=== PATIENT | female | born 1940 | race Caucasian/White ===

== ENCOUNTER 2016-06-07 01:41 | Emergency (ER) | payer MEDICARE, SELFPAY ==
[2016-06-07] MEDS ORDERED: Nitrostat 0.4 MG (ED) SL ONE ×2 (01:54→02:02)
[2016-06-07] MEDS ORDERED: BABY ASPIRIN 81 MG CHEW PO ONE (01:54)
[2016-06-07] MEDS ORDERED: Sodium Chloride 0.9% 1000 ML 1,000 ML IV SCH (02:00)
--- NOTE | 2016-06-07 02:01 | ERPHSYRPT ---
- History of Present Illness Time Seen by Provider: 06/07/16 01:45 Historian: patient Exam Limitations: no limitations Physician History: ABOUT 2.75 HOURS AGO PT STARTED WITH CONSTANT NON-RADIATING DULL ANTERIOR CHEST PAIN WORSE WITH BREATHING. PT DENIES SHORTNESS OF AIR, NAUSEA, VOMITING, ABDOMINAL PAIN, FEVER. Aspirin Treatment Today: 81 mg x 4, provided by ED Allergies/Adverse Reactions: No Known Drug Allergies Allergy (Unverified 06/07/16 03:29) Home Medications: Famotidine 20 mg [Pepcid 20 MG] 1 tab BID 06/07/16 [History] Fenofibrate Nanocrystallized [Fenofibrate] 1 tab DAILY 06/07/16 [History] Losartan Potassium 50 mg [Cozaar 50 MG] 1 tab DAILY 06/07/16 [History] Multivitamin W-Minerals/Lutein [Centrum Silver Tablet] 1 tab DAILY 06/07/16 [ History] Hx Tetanus, Diphtheria Vaccination/Date Given: No Hx Influenza Vaccination/Date Given: Yes Hx Pneumococcal Vaccination/Date Given: Yes - Review of Systems Cardiac: Chest Pain All Other Systems: Reviewed and Negative - Past Medical History Pertinent Past Medical History: Yes Cardiac History: High Cholesterol, Hypertension GI Medical History: Colitis - Past Surgical History Past Surgical History: Yes Musculoskeletal: Joint Replacement - Social History Smoking Status: Never smoker Exposure to second hand smoke: No Drug Use: none Patient Lives Alone: No - Nursing Vital Signs Pulse Rate: 55 Respiratory Rate: 16 Pain Intensity: 4 - Physical Exam General Appearance: alert Eye Exam: PERRL/EOMI Ears, Nose, Throat Exam: TMs normal, pharynx normal, moist mucous membranes Neck Exam: normal inspection Respiratory Exam: wheezing (MINIMAL EXPIRATORY WHEEZING OVER POSTERIOR BASES.) Cardiovascular Exam: normal heart sounds Gastrointestinal/Abdomen Exam: soft, normal bowel sounds Back Exam: normal range of motion Extremity Exam: normal inspection, No pedal edema Neurologic Exam: alert, cooperative Skin Exam: warm, dry SpO2 Interpretation: normal SpO2: 97 Oxygen Delivery: Room Air - Course Nursing assessment & vital signs reviewed: Yes EKG Interpreted by Me: RATE (55), Sinus Tristen, NORMAL AXIS, Non-specific ST Changes - Radiology Exams Chest X-ray Interpretation: Interpreted by me, No Pneumonia Ordered Tests: Active Orders 24 hr Category Date Time Status Process Control Technician STAT Care 06/07/16 01:54 Active Cath for Specimen-Straight STAT Care 06/07/16 02:51 Active EKG-ER Only STAT Care 06/07/16 01:54 Active EKG-ER Only STAT Care 06/07/16 04:14 Active IV Insertion STAT Care 06/07/16 01:54 Active Oxygen-ED Only NASAL CANNULA 2 lpm Care 06/07/16 01:54 Active Pulse Oximetry (ED) STAT Care 06/07/16 01:54 Active CHEST 1 VIEW (PORTABLE) Stat Exams 06/07/16 01:55 Taken AMYLASE Stat Lab 06/07/16 01:45 Completed CBC W DIFF Stat Lab 06/07/16 01:45 Completed CMP Stat Lab 06/07/16 01:45 Completed LIPASE Stat Lab 06/07/16 01:45 Completed MAGNESIUM Stat Lab 06/07/16 01:45 Completed NT PRO BNP Stat Lab 06/07/16 01:45 Completed PROTIME WITH INR Stat Lab 06/07/16 01:45 Completed PTT Stat Lab 06/07/16 01:45 Completed TROPONIN Q3H Lab 06/07/16 01:45 Completed TROPONIN Q3H Lab 06/07/16 05:00 Ordered TROPONIN Q3H Lab 06/07/16 08:00 Ordered TROPONIN Q3H Lab 06/07/16 11:00 Ordered TROPONIN Q3H Lab 06/07/16 14:00 Ordered TROPONIN Stat Lab 06/07/16 04:32 Completed UA Stat Lab 06/07/16 03:00 Completed UA W/ MICROSCOPIC Stat Lab 06/07/16 02:15 Completed Medication Summary Generic Name Dose Route Start Last Admin Trade Name Freq PRN Reason Stop Dose Admin Sodium Chloride 1,000 mls @ 100 mls/hr 06/07/16 02:00 06/07/16 02:04 Sodium Chloride 0.9% 1000 Ml IV 07/07/16 01:59 100 mls/hr .Q10H DIDIER Administration Magnesium Oxide 400 mg 06/07/16 10:00 Mag-Ox 400 PO 07/07/16 09:59 BID DIDIER Discontinued Medications Generic Name Dose Route Start Last Admin Trade Name Freq PRN Reason Stop Dose Admin Aspirin 324 mg 06/07/16 01:54 06/07/16 02:05 Baby Aspirin 81 Mg Chew PO 06/07/16 01:55 324 mg STAT ONE Administration Aspirin Confirm 06/07/16 02:02 Baby Aspirin 81 Mg Chew Administered 06/07/16 02:03 Dose 324 mg .ROUTE .STK-MED ONE Nitroglycerin 0.4 mg 06/07/16 01:54 06/07/16 02:04 Nitrostat 0.4 Mg (Ed) SL 06/07/16 01:55 0.4 mg STAT ONE Administration Nitroglycerin Confirm 06/07/16 02:02 Nitrostat 0.4 Mg (Ed) Administered 06/07/16 02:03 Dose 0.4 mg SL .STK-MED ONE Lab/Rad Data: Laboratory Result Diagrams 06/07/16 01:45 06/07/16 01:45 Laboratory Results 06/07/16 06/07/16 06/07/16 Range/Units 04:32 03:00 02:15 WBC (4.0-10.5) K/mm3 RBC (4.1-5.4) M/mm3 Hgb (12.0-16.0) gm/dl Hct (35-47) % MCV (78-100) fl MCH (26-32) pg MCHC (32-36) g/dl RDW (11.5-14.0) % Plt Count (150-450) K/mm3 MPV (6-9.5) fl Gran % (36.0-66.0) % Lymphocytes % (24.0-44.0) % Monocytes % (0.0-12.0) % Eosinophils % (0.00-5.0) % Basophils % (0.0-0.4) % Basophils # (0-0.4) INR (0.8-3.0) PTT (25.3-37.0) SECONDS Sodium (136-145) mEq/L Potassium (3.5-5.1) mEq/L Chloride (98-107) mEq/L Carbon Dioxide (21-32) mEq/L Anion Gap (5-15) MEQ/L BUN (9-20) mg/dL Creatinine (0.55-1.30) mg/dl Estimated GFR ML/MIN Glucose (70-110) MG/DL Calcium (8.5-10.1) mg/dL Magnesium (1.8-2.4) mg/dL Total Bilirubin (0.2-1.0) mg/dL AST (15-37) U/L ALT (12-78) U/L Alkaline Phosphatase (46-116) U/L Troponin I < 0.017 (0.000-0.056) ng/ml NT-Pro-B Natriuret Pep (0-125) pg/ml Serum Total Protein (6.4-8.2) gm/dL Albumin (3.4-5.0) g/dL Amylase (25-115) U/L Lipase (73-393) U/L Ur Collection Type CATH CLEAN CATCH Urine Color YELLOW YELLOW (YELLOW) Urine Appearance CLEAR SLIGHTLY CLOUDY (CLEAR) Urine pH 5.5 7.0 (5-6) Ur Specific [place] 1.020 1.020 (1.005-1.025) Urine Protein NEGATIVE NEGATIVE (Negative) Urine Glucose (UA) NEGATIVE NEGATIVE (NEGATIVE) mg/dL Urine Ketones NEGATIVE NEGATIVE (NEGATIVE) Urine Nitrite NEGATIVE NEGATIVE (NEGATIVE) Urine Bilirubin NEGATIVE NEGATIVE (NEGATIVE) Urine Urobilinogen 0.2 0.2 (0-1) mg/dL Urine WBC (Auto) NEGATIVE LARGE (NEGATIVE) Urine RBC (Auto) TRACE NON-HEM NEGATIVE (0-5) Myles/ul Urine Microscopic WBC 15-25 (0-5) /HPF Ur Epithelial Cells MODERATE (FEW) /HPF Urine Bacteria MODERATE (NEGATIVE) /HPF Specimen Received 06/07/16:0300 06/07/16:0215 06/07/16 06/07/16 06/07/16 Range/Units 01:45 01:45 01:45 WBC (4.0-10.5) K/mm3 RBC (4.1-5.4) M/mm3 Hgb (12.0-16.0) gm/dl Hct (35-47) % MCV (78-100) fl MCH (26-32) pg MCHC (32-36) g/dl RDW (11.5-14.0) % Plt Count (150-450) K/mm3 MPV (6-9.5) fl Gran % (36.0-66.0) % Lymphocytes % (24.0-44.0) % Monocytes % (0.0-12.0) % Eosinophils % (0.00-5.0) % Basophils % (0.0-0.4) % Basophils # (0-0.4) INR 0.98 (0.8-3.0) PTT 30.2 (25.3-37.0) SECONDS Sodium 141 (136-145) mEq/L Potassium 4.0 (3.5-5.1) mEq/L Chloride 104 (98-107) mEq/L Carbon Dioxide 26.8 (21-32) mEq/L Anion Gap 14.5 (5-15) MEQ/L BUN 26 H (9-20) mg/dL Creatinine 1.30 (0.55-1.30) mg/dl Estimated GFR 43 ML/MIN Glucose 121 H (70-110) MG/DL Calcium 9.1 (8.5-10.1) mg/dL Magnesium 1.7 L (1.8-2.4) mg/dL Total Bilirubin 0.3 (0.2-1.0) mg/dL AST 21 (15-37) U/L ALT 22 (12-78) U/L Alkaline Phosphatase 58 (46-116) U/L Troponin I < 0.017 (0.000-0.056) ng/ml NT-Pro-B Natriuret Pep 519 H (0-125) pg/ml Serum Total Protein 7.0 (6.4-8.2) gm/dL Albumin 3.0 L (3.4-5.0) g/dL Amylase 58 (25-115) U/L Lipase 312 (73-393) U/L Ur Collection Type Urine Color (YELLOW) Urine Appearance (CLEAR) Urine pH (5-6) Ur Specific [place] (1.005-1.025) Urine Protein (Negative) Urine Glucose (UA) (NEGATIVE) mg/dL Urine Ketones (NEGATIVE) Urine Nitrite (NEGATIVE) Urine Bilirubin (NEGATIVE) Urine Urobilinogen (0-1) mg/dL Urine WBC (Auto) (NEGATIVE) Urine RBC (Auto) (0-5) Myles/ul Urine Microscopic WBC (0-5) /HPF Ur Epithelial Cells (FEW) /HPF Urine Bacteria (NEGATIVE) /HPF Specimen Received 06/07/16 Range/Units 01:45 WBC 9.1 (4.0-10.5) K/mm3 RBC 4.41 (4.1-5.4) M/mm3 Hgb 11.7 L (12.0-16.0) gm/dl Hct 37.2 (35-47) % MCV 84.4 (78-100) fl MCH 26.5 (26-32) pg MCHC 31.5 L (32-36) g/dl RDW 15.8 H (11.5-14.0) % Plt Count 382 (150-450) K/mm3 MPV 9.2 (6-9.5) fl Gran % 53.6 (36.0-66.0) % Lymphocytes % 26.0 (24.0-44.0) % Monocytes % 13.8 H (0.0-12.0) % Eosinophils % 5.3 H (0.00-5.0) % Basophils % 1.3 (0.0-0.4) % Basophils # 0.12 (0-0.4) INR (0.8-3.0) PTT (25.3-37.0) SECONDS Sodium (136-145) mEq/L Potassium (3.5-5.1) mEq/L Chloride (98-107) mEq/L Carbon Dioxide (21-32) mEq/L Anion Gap (5-15) MEQ/L BUN (9-20) mg/dL Creatinine (0.55-1.30) mg/dl Estimated GFR ML/MIN Glucose (70-110) MG/DL Calcium (8.5-10.1) mg/dL Magnesium (1.8-2.4) mg/dL Total Bilirubin (0.2-1.0) mg/dL AST (15-37) U/L ALT (12-78) U/L Alkaline Phosphatase (46-116) U/L Troponin I (0.000-0.056) ng/ml NT-Pro-B Natriuret Pep (0-125) pg/ml Serum Total Protein (6.4-8.2) gm/dL Albumin (3.4-5.0) g/dL Amylase (25-115) U/L Lipase (73-393) U/L Ur Collection Type Urine Color (YELLOW) Urine Appearance (CLEAR) Urine pH (5-6) Ur Specific [place] (1.005-1.025) Urine Protein (Negative) Urine Glucose (UA) (NEGATIVE) mg/dL Urine Ketones (NEGATIVE) Urine Nitrite (NEGATIVE) Urine Bilirubin (NEGATIVE) Urine Urobilinogen (0-1) mg/dL Urine WBC (Auto) (NEGATIVE) Urine RBC (Auto) (0-5) Myles/ul Urine Microscopic WBC (0-5) /HPF Ur Epithelial Cells (FEW) /HPF Urine Bacteria (NEGATIVE) /HPF Specimen Received - Departure Time of Disposition: 05:11 Departure Disposition: Home Clinical Impression: CHEST PAIN Condition: Fair Critical Care Time: No Instructions: Chest Pain Additional Instructions: FOLLOW UP WITH PRIVATE DOCTOR TOMORROW.
[2016-06-07] MEDS ORDERED: BABY ASPIRIN 81 MG CHEW ONE (02:02)
[2016-06-07] MEDS ORDERED: Sodium Chloride 0.9% 1000 ML 1,000 ML ONE (02:03)
[2016-06-07 02:14] LABS: BASOPHIL % 1.3 % (0.0-0.4); Eosinophil % 5.3 % (0.00-5.0); Granulocytes % 53.6 % (36.0-66.0); Mean Cell Volume 84.4 fl (78-100); Mean Corpuscular Hemoglobin 26.5 pg (26-32); Mean Platelet Volume 9.2 fl (6-9.5); Monocytes % 13.8 % (0.0-12.0); Platelet Count 382 K/mm3 (150-450); Red Blood Count 4.41 M/mm3 (4.1-5.4); Red Cell Distribution Width 15.8 % (11.5-14.0); White Blood Count 9.1 K/mm3 (4.0-10.5)
[2016-06-07 02:24] LABS: INR 0.98 (0.8-3.0)
[2016-06-07 02:27] LABS: PTT 30.2 SECONDS (25.3-37.0)
[2016-06-07 02:35] LABS: COMPLETE URINE MICROSCOPIC? YES; Collection Type CLEAN CATCH
[2016-06-07 02:36] LABS: Bacteria MODERATE /HPF (NEGATIVE); Epithelial Cells MODERATE /HPF (FEW); WBC 15-25 /HPF (0-5)
[2016-06-07 02:40] LABS: ANION GAP 14.5 MEQ/L (5-15); BILIRUBIN,TOTAL 0.3 mg/dL (0.2-1.0); Carbon Dioxide 26.8 mEq/L (21-32); MAGNESIUM 1.7 mg/dL (1.8-2.4)
[2016-06-07 03:34] LABS: Collection Type CATH
[2016-06-07 03:35] LABS: Ph 5.5 (5-6)
[2016-06-07 03:36] LABS: COMPLETE URINE MICROSCOPIC? YES
[2016-06-07 04:44] VITALS: BP 141/61
[2016-06-07 05:12] VITALS: PULSE 55; O2SAT 97
[2016-06-07] MEDS ORDERED: MAG-OX 400 ONE (05:14)
[2016-06-07] MEDS ORDERED: MAG-OX 400 PO SCH (10:00)
--- NOTE | 2016-06-07 16:37 | XRAY ---
Exam: AP portable chest film from 06/07/2016. Comparison: None. Indication: Chest pain. Findings: The transverse heart size appears at the upper limits of normal. There is some magnification on this AP portable technique. The level of inspiration is a bit less than average. Mild tortuosity of the descending thoracic aorta is seen. No focal lung infiltrates or consolidations are seen. No significant vascular congestion, pneumothorax, or pleural fluid is seen. No acute osseous process is seen. Impression: 1. The inspiratory effort is less than average. 2. No acute cardiopulmonary process is seen.
== END 2016-06-07 05:30 | disposition home or self-care (01) ==
LOC: ED 01:41
DX: R07.89 Other chest pain (principal); E78.00 Pure hypercholesterolemia, unspecified; I10 Essential (primary) hypertension; Z79.899 Other long term (current) drug therapy
CPT/HCPCS: 36000; 36415; 71010; 80053; 81000; 81002; 82150; 83690; 83735; 83880; 84484; 85025; 85610; 85730; 93005; 93041; 96360; 96361; 99284; 99285; P9612; A9270-GY

== ENCOUNTER 2022-02-27 18:44 | Emergency (ER) | payer MEDICARE ==
[2022-02-27 18:59] VITALS: BP 222/100; PULSE 78; O2SAT 98
[2022-02-27] MEDS ORDERED: XYLOCAINE 1% HCL 20 ML MDV ONE (19:19)
[2022-02-27] MEDS ORDERED: Adacel Vial IM ONE ×2 (19:42→19:50)
--- NOTE | 2022-02-27 19:48 | ERPHSYRPT ---
- History of Present Illness Time Seen by Provider: 02/27/22 18:57 Source: patient Exam Limitations: no limitations Patient Subjective Stated Complaint: PT HERE FOR LACERTION TO RIGHT 5TH DIGIT AFTER SLAMMING IT HOUSE DOOR Triage Nursing Assessment: PT HAS LACERATION TO 5TH DIGIT, NO BLEEDING AT PRESENT TIME, PT DENIES ANY OTHER INJURIES Physician History: 81 years old right-handed dominant female presented in the ER after she accidentally got her right fifth digit middle phalanx while closing the door prior to arrival. There was bleeding initially but stopped with applying pressure. Complaining of mild to moderate sharp pain. Able to move finger proximal and distal interphalangeal joint. Unsure about tetanus status. No injury anywhere else. Timing/Duration: today, sudden Quality: painful Severity: mild, moderate Location: hands Allergies/Adverse Reactions: morphine Allergy (Verified 02/27/22 18:52) Home Medications: Famotidine 20 mg [Pepcid 20 MG] 1 tab BID 06/07/16 [History] Fenofibrate Nanocrystallized [Fenofibrate] 1 tab DAILY 06/07/16 [History] Losartan Potassium 50 mg [Cozaar 50 MG] 1 tab DAILY 06/07/16 [History] Multivitamin W-Minerals/Lutein [Centrum Silver Tablet] 1 tab DAILY 06/07/16 [History] Furosemide 40 mg [Lasix 40 MG] 40 mg PO DAILY 02/27/22 [History] Hx Tetanus, Diphtheria Vaccination/Date Given: No Hx Influenza Vaccination/Date Given: Yes Hx Pneumococcal Vaccination/Date Given: Yes Immunizations Up to Date: Yes Travel Risk - International Travel Have you traveled outside of the country in past 3 weeks: No - Coronavirus Screening Are you exhibiting any of the following symptoms?: No Close contact with a COVID-19 positive Pt in past 14-21 Days: No - Vaccine Status Have you recieved a Covid-19 vaccination: Yes 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 - Review of Systems Constitutional: No Symptoms Ears, Nose, & Throat: No Symptoms Respiratory: No Symptoms Cardiac: No Symptoms Genitourinary Symptoms: No Symptoms Musculoskeletal: Injury Skin: Skin Lesions Neurological: No Symptoms Hematologic/Lymphatic: No Symptoms Immunological/Allergic: No Symptoms - Past Medical History Pertinent Past Medical History: Yes Neurological History: No Pertinent History Cardiac History: Hypertension Respiratory History: Other Endocrine Medical History: Adrenal Insufficiency Musculoskeletal History: Osteoarthritis GI Medical History: Colitis Other Medical History: R TKA 2006, SOB, losartin - Past Surgical History Past Surgical History: Yes Musculoskeletal: Joint Replacement - Social History Smoking Status: Former smoker Exposure to second hand smoke: No Drug Use: none Patient Lives Alone: No - Nursing Vital Signs Nursing Vital Signs: Initial Vital Signs Temperature 98.0 F 02/27/22 18:57 Pulse Rate 78 02/27/22 18:57 Respiratory Rate 18 02/27/22 18:57 Blood Pressure 222/100 02/27/22 18:57 O2 Sat by Pulse Oximetry 98 02/27/22 18:57 Pain Scale Pain Intensity 4 - Physical Exam General Appearance: no apparent distress, alert Eye Exam: PERRL/EOMI Ears, Nose, Throat Exam: normal ENT inspection Neck Exam: normal inspection, full range of motion Respiratory Exam: normal breath sounds, lungs clear Cardiovascular Exam: regular rate/rhythm, normal heart sounds Extremity Exam: lacerations (2 cm laceration on palmar aspect of her right fifth digit distal middle phalanx with intact range of motion at proximal and distal interphalangeal joint. Cap refill 3 seconds.), swelling, tenderness Neurologic Exam: alert, oriented x 3, cooperative Skin Exam: normal color SpO2 Interpretation: normal SpO2: 98 O2 Delivery: Room Air Procedures - Laceration/Wound Repair Right Finger Time of Procedure: 19:45 Wound Location: Right Wound Length (cm): 2 Wound's Depth, Shape: into muscle, irregular Wound Explored: clean Irrigated: Yes Hibiclens Prep: Yes Anesthesia: 1% Lidocaine Volume Anesthetic (ccs): 3 Wound Repaired With: sutures Suture Size/Type: 4-0 Number of Sutures: 6 Sterile Dressing Applied?: Yes Sling Applied?: No Progress: 02/27/22 19:45 Patient tolerated procedure very well Ordered Tests: Active Orders 24 hr Category Date Time Status Sutures STAT Care 02/27/22 19:27 Active FINGER(S) Stat Exams 02/27/22 19:02 Taken Medication Summary Discontinued Medications Generic Name Dose Route Start Last Admin Trade Name Freq PRN Reason Stop Dose Admin Lidocaine HCl Confirm 02/27/22 19:19 Lidocaine Hcl 1% 20 Ml Mdv 20 Ml Ml Administered 02/27/22 19:20 Dose 1 ml .ROUTE .[email or web address] ONE - Progress Progress: improved Progress Note: 02/27/22 19:45 81 years old is evaluated in the ER with right hand fifth digit laceration with accidentally got slammed while closing the door. Complaining of mild to moderate sharp pain with movements but intact range of motion at proximal and distal interphalangeal joint. No injury anywhere else. No active bleeding or spurting. Distal neurovascular intact. X-rays negative for obvious acute fracture dislocation reviewed by me, official report is pending. Laceration is repaired and recommended outpatient orthopedics follow-up. Discussed symptoms of infection needing return to ER which he seems understanding Counseled pt/family regarding: diagnosis, need for follow-up, rad results - Departure Departure Disposition: Home Clinical Impression: Finger laceration Condition: Stable Critical Care Time: No Referrals: ROMAN PARRA MD [Primary Care Provider] - Follow Up with PCP/3 days ORTHO - SANKET GODINEZ NP [NON-STAFF PHY W/O PRIVILEGES] - Follow up/PCP as directed (In 2 days for reevaluation) Instructions: Laceration Repair With Stitches (DC) Additional Instructions: Take Tylenol as needed. Intermittent ice application. Keep it elevated. Avoid exertional work with right hand. Follow-up with primary care and Ortho for reevaluation. Suture removal in 10 to 14 days. Return to ER for increasing pain swelling, bluish discoloration of the tip etc.
--- NOTE | 2022-02-27 20:38 | XRAY ---
Indication: Pain and laceration following injury. Comparison: None 3 view right 5th finger demonstrates distal soft tissue swelling. Elsewhere osteopenia, mild/moderate degenerative changes of visualized IP/MCP joints, and advanced 1st metacarpal multangular scaphoid degenerative changes. No other bony, articular, or soft tissue abnormalities.
== END 2022-02-27 20:10 | disposition home or self-care (01) ==
LOC: ED 18:44
DX: S61.216A Laceration without foreign body of right little finger without damage to nail, initial encounter (principal); W23.0XXA Caught, crushed, jammed, or pinched between moving objects, initial encounter; I10 Essential (primary) hypertension; Z79.899 Other long term (current) drug therapy
CPT/HCPCS: 12001; 73140; 90471; 90715; 99283

== ENCOUNTER 2022-07-01 10:56 | Observation (INO) | payer MEDICARE ==
--- NOTE | 2022-07-01 12:08 | XRAY ---
Indication: Cough. Comparison: November 25, 2021 Portable chest remains inflated and clear. Heart not enlarged for AP portable technique. Bony thorax intact again with osteopenia and mild degenerative changes. Impression: Continue nonacute chest with chronic bony findings.
[2022-07-01 12:14] LABS: ADD URINE CULTURE? NO (NO); Appearance Clear (Clear); Bacteria Few /HPF (None Seen); Bilirubin Negative (Negative); Blood Negative (Negative); Epithelial Cells Few /HPF (None Seen); Glucose, Urine Negative (Negative); Ketones Negative (Negative); Leukocyte Esterase Moderate (Negative); Nitrite Negative (Negative); Protein,Urine Dip Negative (Negative); RBC 0-2 /HPF (0-5); Urobilinogen 0.2 mg/dL (0.2)
[2022-07-01 12:15] LABS: Absolute Neutrophil Ct (ANC) 3.45 x10^3/uL (1.4-6.9); BASOPHIL % 1.8 % (0.0-0.4); Basophil (Absolute #) 0.11 x10^3/uL (0-0.4); Eosinophil (Absolute #) 0.36 x10^3/uL (0-0.5); Hematocrit 42.5 % (35-47); Hemoglobin 13.4 g/dL (12.0-16.0); IMMATURE GRAN # 0.02 x10^3u/L (0.00-0.03); IMMATURE GRAN % 0.3 % (0.00-0.4); Lymphocyte (Absolute #) 1.24 x10^3/uL (1.0-4.6); Lymphocytes % 20.5 % (24.0-44.0); Mean Cell Volume 84.2 fL (78-100); Mean Corpuscular Hemoglobin 26.5 pg (26-32); Mean Corpuscular Hgb Concent. 31.5 g/dL (32-36); Monocyte (Absolute #) 0.86 x10^3/uL (0.0-1.3); Monocytes % 14.2 % (0.0-12.0); Neutrophil % 57.2 % (36.0-66.0); Platelet Count 363 x10^3/uL (150-450); Red Blood Count 5.05 x10^6/uL (4.1-5.4); Red Cell Distribution Width 14.5 % (11.5-14.0)
[2022-07-01 12:31] LABS: ANION GAP 14.2 MEQ/L (5-15); BILIRUBIN,TOTAL 0.5 mg/dL (0.2-1.3); Calcium 9.4 mg/dL (8.4-10.2); Creatinine 1 1.37 mg/dL (0.52-1.04); EST GLOMERULAR FILTRATION RATE 39.4 ML/MIN; Potassium 4.3 mmol/L (3.5-5.1); Total Protein 7.9 g/dL (6.3-8.2)
[2022-07-01] MEDS ORDERED: CARDIZEM DRIP 100 MG/100 ML D5W 100 ML IV PRN (14:02)
--- NOTE | 2022-07-01 14:30 | ERPHSYRPT ---
- History of Present Illness Time Seen by Provider: 07/01/22 11:20 Source: patient Exam Limitations: no limitations Patient Subjective Stated Complaint: Pt states "I took my morning meds and I then filled my pill bottles and An out after I took my morning meds, I thought t o myself that I needed to take my meds and I took them again. I took valsartan 160 X2 and lasix 40 X2, fenofibrate 140 X2." Triage Nursing Assessment: Pt presented alert and oriented X 3, skin pwd. Pt ambulates with an upright steady gait, able to speak in clear full sentences. Pt in no apparet respiratory distress. pt has raspy voice, pt stated she has a cold. Physician History: 81 years old female with history of hypertension, hyperlipidemia congestive heart failure presented in the ER after she accidentally took extra dose of her valsartan 80 mg, Lasix 40 mg and statin/fenofibrate around 830 to 9 AM today. Patient later on realized that she has taken extra pills. She denies any chest pain palpitations or shortness of breath but does have some chest congestion for the last few days. Minimal cough at times. No lower extremity swelling. Denies any headache, dizziness or lightheadedness. Patient is in A-fib with heart rate bouncing between 100-130 with no known history of A-fib in the past. Timing/Duration: today, gradual onset Associated Symptoms: cough, No chest pain Allergies/Adverse Reactions: morphine Allergy (Intermediate, Verified 07/01/22 18:10) Vomiting Home Medications: Fenofibrate Nanocrystallized [Fenofibrate] 145 mg PO DAILY 06/07/16 [History] Furosemide 40 mg [Lasix 40 MG] 40 mg PO 0800,1400 02/27/22 [History] Atorvastatin Calcium 10 mg PO HS 07/01/22 [History] Omeprazole 20 mg PO HS 07/01/22 [History] Ropinirole HCl 3 mg PO HS 07/01/22 [History] Valsartan 160 mg PO BID 07/01/22 [History] Vibegron [Gemtesa] 75 mg PO DAILY 07/01/22 [History] Hx Tetanus, Diphtheria Vaccination/Date Given: No Hx Influenza Vaccination/Date Given: Yes Hx Pneumococcal Vaccination/Date Given: Yes Travel Risk - International Travel Have you traveled outside of the country in past 3 weeks: No - Coronavirus Screening Are you exhibiting any of the following symptoms?: No Close contact with a COVID-19 positive Pt in past 14-21 Days: No - Vaccine Status Have you recieved a Covid-19 vaccination: Yes Yeast Washer: Unknown - Vaccination Dates Date of 2cond Vaccination (if applicable): 2020 Dates if Unknown: ? - Review of Systems Constitutional: No Symptoms Eyes: No Symptoms Ears, Nose, & Throat: No Symptoms Respiratory: Cough Cardiac: No Symptoms Abdominal/Gastrointestinal: No Symptoms Genitourinary Symptoms: No Symptoms Musculoskeletal: No Symptoms Skin: No Symptoms Neurological: No Symptoms Psychological: No Symptoms Hematologic/Lymphatic: No Symptoms Immunological/Allergic: No Symptoms - Past Medical History Pertinent Past Medical History: Yes Neurological History: No Pertinent History Cardiac History: Hypertension Respiratory History: Other Endocrine Medical History: Adrenal Insufficiency Musculoskeletal History: Osteoarthritis GI Medical History: Colitis Other Medical History: R TKA 2006, SOB, losartin - Past Surgical History Past Surgical History: Yes Musculoskeletal: Joint Replacement - Social History Smoking Status: Former smoker Exposure to second hand smoke: No Drug Use: none Patient Lives Alone: No - Nursing Vital Signs Nursing Vital Signs: Initial Vital Signs Temperature 97.8 F 07/01/22 11:08 Pulse Rate 130 H 07/01/22 11:08 Respiratory Rate 24 07/01/22 11:08 Blood Pressure 112/75 07/01/22 11:08 O2 Sat by Pulse Oximetry 94 L 07/01/22 11:08 Pain Scale Pain Intensity 2 - Physical Exam General Appearance: no apparent distress, alert Eye Exam: PERRL/EOMI Ears, Nose, Throat Exam: normal ENT inspection, pharynx normal Neck Exam: normal inspection, full range of motion Respiratory Exam: normal breath sounds, lungs clear Cardiovascular Exam: normal heart sounds, tachycardia, irregular Gastrointestinal/Abdomen Exam: soft, normal bowel sounds Back Exam: normal inspection, normal range of motion Extremity Exam: normal inspection, normal range of motion Neurologic Exam: alert, oriented x 3, cooperative Skin Exam: normal color SpO2 Interpretation: normal SpO2: 92 O2 Delivery: Room Air - Course EKG Interpreted by Me: RATE (102), A-fib, NORMAL AXIS, NORMAL INTERVALS, Non- specific ST Changes Ordered Tests: Active Orders 24 hr Category Date Time Status Bedrest ROUTINE Activity 07/01/22 17:00 Active Up With Assistance ROUTINE Activity 07/01/22 17:00 Active Call Admit Doctor for Orders ON ADMISSION Care 07/01/22 17:00 Active Code Status Order ROUTINE Care 07/01/22 17:00 Active EKG-ER Only STAT Care 07/01/22 11:48 Completed Fall Protocol Q1H Care 07/01/22 17:00 Active IV Care Q1H Care 07/01/22 17:00 Active IV Insertion STAT Care 07/01/22 11:[address] in Observation ROUTINE Care 07/01/22 17:00 Active Yessenia Saleem ROUTINE Care 07/01/22 17:00 Active Weight,Daily 0600 Care 07/01/22 17:00 Active Heart-Healthy Diet Diet 07/01/22 Dinner Active CHEST 1 VIEW (PORTABLE) Stat Exams 07/01/22 11:49 Completed CBC W DIFF AM.LAB Lab 07/02/22 04:00 Ordered CBC W DIFF Stat Lab 07/01/22 12:10 Completed CMP AM.LAB Lab 07/02/22 04:00 Ordered CMP Stat Lab 07/01/22 12:10 Completed MAG [MAGNESIUM] Stat Lab 07/01/22 12:10 Completed TROPONIN Q4H Lab 07/01/22 12:10 Completed TROPONIN Q4H Lab 07/01/22 15:10 Completed TROPONIN Q4H Lab 07/01/22 19:30 Completed UA W/RFX UR CULTURE Stat Lab 07/01/22 11:57 Completed Transfer Order Routine Transfer 07/01/22 Completed Medication Summary Generic Name Dose Route Start Last Admin Trade Name Freq PRN Reason Stop Dose Admin Acetaminophen 650 mg 07/01/22 17:00 Acetaminophen 325 Mg Tablet PO 07/31/22 16:59 Q4H PRN PRN PAIN AND/OR FEVER Apixaban 5 mg 07/01/22 16:00 07/01/22 15:33 Apixaban 2.5 Mg Tablet PO 07/31/22 15:59 5 mg BIDWM DIDIER Administration Diltiazem HCl 60 mg 07/01/22 18:30 07/01/22 22:26 Diltiazem Hcl 30 Mg Tablet PO 07/31/22 18:29 60 mg BID DIDIER Administration Famotidine 20 mg 07/01/22 22:00 07/01/22 22:28 Famotidine 20 Mg/1 Vial IV 07/31/22 21:59 20 mg Q12HT DIDIER Administration Fenofibrate 145 mg 07/02/22 10:00 Fenofibrate,Micronized 145 Mg Tablet PO 08/01/22 09:59 DAILY DIDIER Furosemide 40 mg 07/02/22 08:00 Furosemide 40 Mg Tablet PO 08/01/22 07:59 BID DIURETIC DIDIER Diltiazem HCl 100 mls @ 5 mls/hr 07/01/22 14:02 07/01/22 18:29 Cardizem Drip 100 Mg/100 Ml D5w IV 07/31/22 14:01 2.5 mg/hr .Q20H PRN 2.5 mls/hr HEART RATE/ A-FIB Titration Protocol 5 MG/HR Non-Formulary Medication 1 each 07/02/22 10:00 Non-Formulary Drug 1 Each Each PO 08/01/22 09:59 DAILY DIDIER Ondansetron HCl 4 mg 07/01/22 17:00 Ondansetron Hcl 4 Mg/2 Ml Vial IV 07/31/22 16:59 Q6H PRN PRN NAUSEA/VOMITING Pantoprazole Sodium 20 mg 07/01/22 22:00 07/01/22 22:26 Pantoprazole 20 Mg Tab PO 07/31/22 21:59 20 mg QHS DIDIER Administration Ropinirole HCl 3 mg 07/01/22 22:00 07/01/22 22:28 Ropinirole Hcl 2 Mg Tablet PO 07/31/22 21:59 3 mg QHS DIDIER Administration Simvastatin 10 mg 07/01/22 22:00 07/01/22 22:29 Simvastatin 10 Mg Tablet PO 07/31/22 21:59 10 mg HS DIDIER Administration Valsartan 160 mg 07/02/22 10:00 Valsartan 80 Mg Tablet PO 08/01/22 09:59 BID DIDIER Discontinued Medications Generic Name Dose Route Start Last Admin Trade Name Freq PRN Reason Stop Dose Admin Albuterol/Ipratropium 3 ml 07/01/22 17:00 Ipratropium/Albuterol Sulfate 3 Ml Ampul.Neb IH 07/31/22 16:59 Q4HPRN PRN SHORTNESS OF BREATH/WHEEZING Lab/Rad Data: Laboratory Result Diagrams 07/01/22 12:10 07/01/22 12:10 Laboratory Results 07/01/22 07/01/22 07/01/22 Range/Units 15:10 12:10 12:10 WBC (4.0-10.5) x10^3/uL RBC (4.1-5.4) x10^6/uL Hgb (12.0-16.0) g/dL Hct (35-47) % MCV (78-100) fL MCH (26-32) pg MCHC (32-36) g/dL RDW (11.5-14.0) % Plt Count (150-450) x10^3/uL MPV (7.5-11.0) fL Gran % (36.0-66.0) % Immature Gran % (Auto) (0.00-0.4) % Nucleat RBC Rel Count (0.00-0.1) % Eos # (Auto) (0-0.5) x10^3/uL Immature Gran # (Auto) (0.00-0.03) x10^3u/L Absolute Lymphs (auto) (1.0-4.6) x10^3/uL Absolute Monos (auto) (0.0-1.3) x10^3/uL Absolute Nucleated RBC (0.00-0.01) x10^3u/L Lymphocytes % (24.0-44.0) % Monocytes % (0.0-12.0) % Eosinophils % (0.00-5.0) % Basophils % (0.0-0.4) % Absolute Granulocytes (1.4-6.9) x10^3/uL Basophils # (0-0.4) x10^3/uL Sodium (137-145) mmol/L Potassium (3.5-5.1) mmol/L Chloride (98-107) mmol/L Carbon Dioxide (22-30) mmol/L Anion Gap (5-15) MEQ/L BUN (7-17) mg/dL Creatinine (0.52-1.04) mg/dL Estimated GFR ML/MIN Glucose (74-106) mg/dL Calcium (8.4-10.2) mg/dL Magnesium 2.0 (1.6-2.3) mg/dL Total Bilirubin (0.2-1.3) mg/dL AST (14-36) U/L ALT (0-35) U/L Alkaline Phosphatase (38-126) U/L Troponin I 0.034 0.038 H* (0.000-0.034) ng/mL Serum Total Protein (6.3-8.2) g/dL Albumin (3.5-5.0) g/dL Urine Color (Yellow) Urine Appearance (Clear) Urine pH (4.6-8.0) Ur Specific Lisle (1.005-1.030) Urine Protein (Negative) Urine Glucose (UA) (Negative) mg/dL Urine Ketones (Negative) Urine Blood (Negative) Urine Nitrite (Negative) Urine Bilirubin (Negative) Urine Urobilinogen (0.2) mg/dL Ur Leukocyte Esterase (Negative) U Hyaline Cast (Auto) (0-2) /LPF Urine Microscopic RBC (0-5) /HPF Urine Microscopic WBC (0-5) /HPF Ur Epithelial Cells (None Seen) /HPF Urine Bacteria (None Seen) /HPF Urine Culture Reflexed (NO) 07/01/22 07/01/22 07/01/22 Range/Units 12:10 12:10 11:57 WBC 6.0 (4.0-10.5) x10^3/uL RBC 5.05 (4.1-5.4) x10^6/uL Hgb 13.4 (12.0-16.0) g/dL Hct 42.5 (35-47) % MCV 84.2 (78-100) fL MCH 26.5 (26-32) pg MCHC 31.5 L (32-36) g/dL RDW 14.5 H (11.5-14.0) % Plt Count 363 (150-450) x10^3/uL MPV 9.0 (7.5-11.0) fL Gran % 57.2 (36.0-66.0) % Immature Gran % (Auto) 0.3 (0.00-0.4) % Nucleat RBC Rel Count 0.0 (0.00-0.1) % Eos # (Auto) 0.36 (0-0.5) x10^3/uL Immature Gran # (Auto) 0.02 (0.00-0.03) x10^3u/L Absolute Lymphs (auto) 1.24 (1.0-4.6) x10^3/uL Absolute Monos (auto) 0.86 (0.0-1.3) x10^3/uL Absolute Nucleated RBC 0.00 (0.00-0.01) x10^3u/L Lymphocytes % 20.5 L (24.0-44.0) % Monocytes % 14.2 H (0.0-12.0) % Eosinophils % 6.0 H (0.00-5.0) % Basophils % 1.8 (0.0-0.4) % Absolute Granulocytes 3.45 (1.4-6.9) x10^3/uL Basophils # 0.11 (0-0.4) x10^3/uL Sodium 138 (137-145) mmol/L Potassium 4.3 (3.5-5.1) mmol/L Chloride 99 (98-107) mmol/L Carbon Dioxide 29 (22-30) mmol/L Anion Gap 14.2 (5-15) MEQ/L BUN 28 H (7-17) mg/dL Creatinine 1.37 H (0.52-1.04) mg/dL Estimated GFR 39.4 ML/MIN Glucose 134 H (74-106) mg/dL Calcium 9.4 (8.4-10.2) mg/dL Magnesium (1.6-2.3) mg/dL Total Bilirubin 0.50 (0.2-1.3) mg/dL AST 39 H (14-36) U/L ALT 23 (0-35) U/L Alkaline Phosphatase 65 (38-126) U/L Troponin I (0.000-0.034) ng/mL Serum Total Protein 7.9 (6.3-8.2) g/dL Albumin 4.0 (3.5-5.0) g/dL Urine Color Yellow (Yellow) Urine Appearance Clear (Clear) Urine pH 5.0 (4.6-8.0) Ur Specific Lisle 1.010 (1.005-1.030) Urine Protein Negative (Negative) Urine Glucose (UA) Negative (Negative) mg/dL Urine Ketones Negative (Negative) Urine Blood Negative (Negative) Urine Nitrite Negative (Negative) Urine Bilirubin Negative (Negative) Urine Urobilinogen 0.2 (0.2) mg/dL Ur Leukocyte Esterase Moderate A (Negative) U Hyaline Cast (Auto) 3-5 A (0-2) /LPF Urine Microscopic RBC 0-2 (0-5) /HPF Urine Microscopic WBC 3-5 (0-5) /HPF Ur Epithelial Cells Few (None Seen) /HPF Urine Bacteria Few A (None Seen) /HPF Urine Culture Reflexed NO (NO) - Progress Progress: unchanged, re-examined Progress Note: 07/01/22 14:27 81 years old with history of hypertension, hyperlipidemia, congestive heart failure is evaluated in the ER after she took an extra dose of her routine medications around 830/9:00. Patient later on realized this and come in here for evaluation. Patient blood pressure was borderline in 90s on presentation and no headache, dizziness or lightheadedness. Patient was found to be in A-fib with heart rate bouncing between 100-1 30s without any feeling of palpitations pressure or tightness. No ST elevations but has initial troponin of 0.038. Patient has CKD which is stable. Normal white count. Chest x-ray no acute cardiopulmonary findings. Patient does not know that she has A-fib in the past. I have tried to get hold of her primary student counselor Dr. Nahomi Mccallum but could not, nursing staff give info about questionable A-fib in the past. Patient blood pressure improved to 130s without any intervention and she is remained asymptomatic although her heart rate is still in A-fib with RVR. I have started her on a low-dose of Cardizem. I have discussed with patient about the need of admission and further evaluation of this. Initially she was not agreeable but later on she agreed with plan of admission. Discussed with : Marlen Counseled pt/family regarding: lab results, diagnosis, rad results Medical Desision Making - External Record(s) Reviewed Records reviewed as a part of evaluation & management: Clinic ( cardiology) - Discussion of managment Care discussed with:: on-call "doc" Reviewed:: Test results, Need for additional workup Agreed on:: Treatment plan, place in obs Will see patient: in hospital - Diagnostic Testing Diagnostic test were ordered, analyzed, and reviewed by me: Yes Radiological Interpretation: Reviewed by me - Risk of complications The pt has a high risk of morbidity or mortality based on: Decision regarding hospitilization or escalation of hosp level of care - Departure Departure Disposition: Observation Clinical Impression: Atrial fibrillation with rapid ventricular response Overdose Qualifiers: Encounter type: initial encounter Injury intent: accidental or unintentional Qualified Code(s): T50.901A - Poisoning by unspecified drugs, medicaments and biological substances, accidental (unintentional), initial encounter Condition: Stable Critical Care Time: No
[2022-07-01] MEDS: ELIQUIS 2.5 MG TABLET PO SCH (15:33)
[2022-07-01] MEDS ORDERED: TYLENOL 325 MG PO PRN (17:00)
[2022-07-01] MEDS ORDERED: DUONEB 0.5-3 MG/3 ml Neb IH PRN (17:00)
[2022-07-01] MEDS ORDERED: Zofran 4 MG/2 ML VIAL IV PRN (17:00)
[2022-07-01] MEDS: Cardizem 30 MG PO SCH ×2 (18:25→22:26)
[2022-07-01] MEDS ORDERED: REQUIP 2MG TAB PO SCH (22:00)
[2022-07-01] MEDS ORDERED: Protonix 20MG Tablet PO SCH (22:00)
[2022-07-01] MEDS ORDERED: Zocor 10MG PO SCH (22:00)
[2022-07-01] MEDS: Pepcid 20 MG VIAL IV SCH (22:28)
[2022-07-02 01:51] LABS: Absolute Neutrophil Ct (ANC) 2.93 x10^3/uL (1.4-6.9); BASOPHIL % 1.6 % (0.0-0.4); Basophil (Absolute #) 0.09 x10^3/uL (0-0.4); Eosinophil % 4.9 % (0.00-5.0); Eosinophil (Absolute #) 0.28 x10^3/uL (0-0.5); Hematocrit 40.3 % (35-47); Hemoglobin 12.2 g/dL (12.0-16.0); IMMATURE GRAN # 0.03 x10^3u/L (0.00-0.03); IMMATURE GRAN % 0.5 % (0.00-0.4); Lymphocyte (Absolute #) 1.37 x10^3/uL (1.0-4.6); Lymphocytes % 23.8 % (24.0-44.0); Mean Cell Volume 86.1 fL (78-100); Mean Corpuscular Hemoglobin 26.1 pg (26-32); Mean Corpuscular Hgb Concent. 30.3 g/dL (32-36); Mean Platelet Volume 9.1 fL (7.5-11.0); Monocyte (Absolute #) 1.05 x10^3/uL (0.0-1.3); Monocytes % 18.3 % (0.0-12.0); Neutrophil % 50.9 % (36.0-66.0); Platelet Count 323 x10^3/uL (150-450); Red Blood Count 4.68 x10^6/uL (4.1-5.4); Red Cell Distribution Width 14.5 % (11.5-14.0); White Blood Count 5.8 x10^3/uL (4.0-10.5)
[2022-07-02 01:57] LABS: ALBUMIN 3.5 g/dL (3.5-5.0); ANION GAP 11.8 MEQ/L (5-15); BILIRUBIN,TOTAL 0.4 mg/dL (0.2-1.3); Calcium 9.3 mg/dL (8.4-10.2); Creatinine 1 1.44 mg/dL (0.52-1.04); EST GLOMERULAR FILTRATION RATE 37.2 ML/MIN; Total Protein 7.1 g/dL (6.3-8.2)
[2022-07-02] MEDS: ELIQUIS 2.5 MG TABLET PO SCH (07:31)
[2022-07-02] MEDS: Lasix 40 MG PO SCH ×2 (07:31→09:51)
[2022-07-02 07:48] VITALS: O2SAT 91
[2022-07-02 08:08] VITALS: BP 118/77
[2022-07-02 09:11] VITALS: PULSE 83
[2022-07-02] MEDS: Cardizem 30 MG PO SCH (09:42)
[2022-07-02] MEDS: Pepcid 20 MG VIAL IV SCH (09:43)
[2022-07-02] MEDS ORDERED: DIOVAN 80 MG PO SCH (10:00)
[2022-07-02] MEDS ORDERED: NON-FORMULARY ITEM PO SCH (10:00)
[2022-07-02] MEDS ORDERED: PATIENT OWN MEDICATION PO SCH (10:00)
[2022-07-02] MEDS ORDERED: Tricor 145 MG PO SCH (10:00)
[2022-07-02] MEDS ORDERED: Protonix 40MG Tablet PO SCH (22:00)
== END 2022-07-02 11:20 | disposition home or self-care (01) ==
LOC: ED 10:56 → ICU 16:52
PROVIDERS: ADMIT Family Medicine; ATTEND Family Medicine
DX: I48.91 Unspecified atrial fibrillation (principal); I13.0 Hypertensive heart and chronic kidney disease with heart failure and stage 1 through stage 4 chronic kidney disease, or unspecified chronic kidney disease; N18.9 Chronic kidney disease, unspecified; I50.9 Heart failure, unspecified; E78.5 Hyperlipidemia, unspecified; T46.5X1A Poisoning by other antihypertensive drugs, accidental (unintentional), initial encounter; T50.1X1A Poisoning by loop [high-ceiling] diuretics, accidental (unintentional), initial encounter; T46.6X1A Poisoning by antihyperlipidemic and antiarteriosclerotic drugs, accidental (unintentional), initial encounter; R77.8 Other specified abnormalities of plasma proteins; Z79.899 Other long term (current) drug therapy; Z20.828 Contact with and (suspected) exposure to other viral communicable diseases
CPT/HCPCS: 36000; 36415; 71045; 80053; 81001; 83735; 84484; 85025; 93005; 93268; 96365; 96366; 99285; G0378; A9270-GY

== ENCOUNTER 2022-11-11 16:53 | Emergency (ER) | payer MEDICARE ==
[2022-11-11 17:24] VITALS: TEMP 98.1
--- NOTE | 2022-11-11 17:54 | ERPHSYRPT ---
- History of Present Illness Source: patient, family Exam Limitations: no limitations Patient Subjective Stated Complaint: hypertension Triage Nursing Assessment: Pt brought to the ER by her granddaughter, hypertensive, denies pain, pt stated that she was filling dizzy so she took her blood pressure and it was high, stopped off at her doctors and it was still high, pulses normal, skin n/w/d, denies headache, states that Tuesday she went to see Dr. Marquez on Tuesday and her BP was 170/?. Physician History: 82 yo WF w elevated BP today. She has a mild headache but denies focal weakness/chest pain/worsening dyspnea/nausea/vomiting/diaphoresis. PMH includes CHF/2L O2 NC prn/HTN. Timing/Duration: today Severity: moderate Modifying Factors: Improves With: nothing Associated Symptoms: denies symptoms Allergies/Adverse Reactions: morphine Allergy (Intermediate, Verified 11/11/22 17:24) Vomiting Home Medications: Fenofibrate Nanocrystallized [Fenofibrate] 145 mg PO DAILY 06/07/16 [History] Furosemide 40 mg [Lasix 40 MG] 20 mg PO BID 02/27/22 [History] Atorvastatin Calcium 10 mg PO HS 07/01/22 [History] Omeprazole 20 mg PO HS 07/01/22 [History] Ropinirole HCl 3 mg PO HS 07/01/22 [History] Valsartan 160 mg PO BID 07/01/22 [History] Vibegron [Gemtesa] 75 mg PO DAILY 07/01/22 [History] Hx Tetanus, Diphtheria Vaccination/Date Given: No Hx Influenza Vaccination/Date Given: Yes Hx Pneumococcal Vaccination/Date Given: Yes Travel Risk - International Travel Have you traveled outside of the country in past 3 weeks: No - Coronavirus Screening Are you exhibiting any of the following symptoms?: No Close contact with a COVID-19 positive Pt in past 14-21 Days: No - Vaccine Status Have you recieved a Covid-19 vaccination: Yes 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 - Review of Systems Constitutional: No Symptoms Eyes: No Symptoms Ears, Nose, & Throat: No Symptoms Respiratory: No Symptoms Cardiac: No Symptoms Abdominal/Gastrointestinal: No Symptoms Genitourinary Symptoms: No Symptoms Musculoskeletal: No Symptoms Skin: No Symptoms Neurological: No Symptoms, Headache Psychological: No Symptoms Endocrine: No Symptoms Hematologic/Lymphatic: No Symptoms Immunological/Allergic: No Symptoms - Past Medical History Pertinent Past Medical History: Yes Neurological History: No Pertinent History ENT History: No Pertinent History Cardiac History: Congestive Heart Failure, Hypertension Respiratory History: Other Endocrine Medical History: Adrenal Insufficiency Musculoskeletal History: Osteoarthritis GI Medical History: Colitis History: No Pertinent History, Renal Disease Psycho-Social History: No Pertinent History Female Reproductive Disorders: No Pertinent History Other Medical History: R TKA 2006, SOB, losartin - Past Surgical History Past Surgical History: Yes Cardiac: Cardiac Catheterization Gastrointestinal: Cholecystectomy Musculoskeletal: Joint Replacement Female Surgical History: Hysterectomy Other Surgical History: R and L TKA, RTH, fecal transplant - Social History Smoking Status: Former smoker Exposure to second hand smoke: No Drug Use: none Patient Lives Alone: Yes - Nursing Vital Signs Nursing Vital Signs: Initial Vital Signs Temperature 98.1 F 11/11/22 17:04 Pulse Rate 59 L 11/11/22 17:04 Blood Pressure 194/74 11/11/22 17:04 O2 Sat by Pulse Oximetry 95 11/11/22 17:04 Pain Scale Pain Intensity 0 Hypertensive/Bradycardic - Physical Exam General Appearance: no apparent distress Eye Exam: PERRL/EOMI, eyes nml inspection Ears, Nose, Throat Exam: normal ENT inspection, TMs normal, pharynx normal, moist mucous membranes Neck Exam: normal inspection, non-tender, supple, full range of motion, No meningismus, No mass, No Brudzinski, No Kernig's, No carotid bruit Respiratory Exam: normal breath sounds, lungs clear, airway intact, No respiratory distress Cardiovascular Exam: regular rate/rhythm, normal heart sounds, normal peripheral pulses, capillary refill <2 sec, No murmur Gastrointestinal/Abdomen Exam: soft, normal bowel sounds Back Exam: normal inspection, normal range of motion, No CVA tenderness, No vertebral tenderness Extremity Exam: normal inspection, normal range of motion Neurologic Exam: alert, oriented x 3, cooperative, burlap bag sewer II-XII nml as tested, normal mood/affect, nml cerebellar function, nml station & gait, sensation nml Skin Exam: normal color, warm, dry, No rash Lymphatic Exam: No adenopathy SpO2 Interpretation: normal SpO2: 95 O2 Delivery: Room Air - Course Nursing assessment & vital signs reviewed: Yes EKG Interpreted by Me: RATE (Sinus bibi/Rate 53/Normal QT-QTc/Old inferior VA/No acute ST segment changes) - CT Exams Head CT Interpretation: Discussed w/radiologist (CT head negative) Ordered Tests: Active Orders 24 hr Category Date Time Status EKG-ER Only STAT Care 11/11/22 17:49 Completed HEAD WITHOUT CONTRAST [CT] Stat Exams 11/11/22 17:49 Taken CBC W DIFF Stat Lab 11/11/22 18:15 Completed CMP Stat Lab 11/11/22 18:15 Completed PROTIME WITH INR Stat Lab 11/11/22 18:15 Completed PTT Stat Lab 11/11/22 18:15 Completed TROPONIN Q4H Lab 11/11/22 18:15 Completed Lab/Rad Data: Laboratory Result Diagrams 11/11/22 18:15 11/11/22 18:15 Laboratory Results 11/11/22 11/11/22 11/11/22 Range/Units 18:15 18:15 18:15 WBC (4.0-10.5) x10^3/uL RBC (4.1-5.4) x10^6/uL Hgb (12.0-16.0) g/dL Hct (35-47) % MCV (78-100) fL MCH (26-32) pg MCHC (32-36) g/dL RDW (11.5-14.0) % Plt Count (150-450) x10^3/uL MPV (7.5-11.0) fL Gran % (36.0-66.0) % Immature Gran % (Auto) (0.00-0.4) % Nucleat RBC Rel Count (0.00-0.1) % Eos # (Auto) (0-0.5) x10^3/uL Immature Gran # (Auto) (0.00-0.03) x10^3u/L Absolute Lymphs (auto) (1.0-4.6) x10^3/uL Absolute Monos (auto) (0.0-1.3) x10^3/uL Absolute Nucleated RBC (0.00-0.01) x10^3u/L Lymphocytes % (24.0-44.0) % Monocytes % (0.0-12.0) % Eosinophils % (0.00-5.0) % Basophils % (0.0-0.4) % Absolute Granulocytes (1.4-6.9) x10^3/uL Basophils # (0-0.4) x10^3/uL PT 10.9 (9.4-12.5) SECONDS INR 1.00 (0.8-3.0) APTT 25.3 (25.1-36.5) SECONDS Sodium 137 (137-145) mmol/L Potassium 4.5 (3.5-5.1) mmol/L Chloride 100 (98-107) mmol/L Carbon Dioxide 30 (22-30) mmol/L Anion Gap 11.2 (5-15) MEQ/L BUN 42 H (7-17) mg/dL Creatinine 1.38 H (0.52-1.04) mg/dL Estimated GFR 39.0 ML/MIN Glucose 99 (74-106) mg/dL Calcium 9.8 (8.4-10.2) mg/dL Total Bilirubin 0.40 (0.2-1.3) mg/dL AST 51 H (14-36) U/L ALT 55 H (0-35) U/L Alkaline Phosphatase 74 (38-126) U/L Troponin I 0.013 (0.000-0.034) ng/mL Serum Total Protein 7.6 (6.3-8.2) g/dL Albumin 4.1 (3.5-5.0) g/dL 11/11/22 Range/Units 18:15 WBC 10.7 H (4.0-10.5) x10^3/uL RBC 5.08 (4.1-5.4) x10^6/uL Hgb 13.4 (12.0-16.0) g/dL Hct 43.2 (35-47) % MCV 85.0 (78-100) fL MCH 26.4 (26-32) pg MCHC 31.0 L (32-36) g/dL RDW 14.6 H (11.5-14.0) % Plt Count 394 (150-450) x10^3/uL MPV 9.1 (7.5-11.0) fL Gran % 70.6 H (36.0-66.0) % Immature Gran % (Auto) 0.5 H (0.00-0.4) % Nucleat RBC Rel Count 0.0 (0.00-0.1) % Eos # (Auto) 0.17 (0-0.5) x10^3/uL Immature Gran # (Auto) 0.05 H (0.00-0.03) x10^3u/L Absolute Lymphs (auto) 2.09 (1.0-4.6) x10^3/uL Absolute Monos (auto) 0.74 (0.0-1.3) x10^3/uL Absolute Nucleated RBC 0.00 (0.00-0.01) x10^3u/L Lymphocytes % 19.5 L (24.0-44.0) % Monocytes % 6.9 (0.0-12.0) % Eosinophils % 1.6 (0.00-5.0) % Basophils % 0.9 (0.0-0.4) % Absolute Granulocytes 7.56 H (1.4-6.9) x10^3/uL Basophils # 0.10 (0-0.4) x10^3/uL PT (9.4-12.5) SECONDS INR (0.8-3.0) APTT (25.1-36.5) SECONDS Sodium (137-145) mmol/L Potassium (3.5-5.1) mmol/L Chloride (98-107) mmol/L Carbon Dioxide (22-30) mmol/L Anion Gap (5-15) MEQ/L BUN (7-17) mg/dL Creatinine (0.52-1.04) mg/dL Estimated GFR ML/MIN Glucose (74-106) mg/dL Calcium (8.4-10.2) mg/dL Total Bilirubin (0.2-1.3) mg/dL AST (14-36) U/L ALT (0-35) U/L Alkaline Phosphatase (38-126) U/L Troponin I (0.000-0.034) ng/mL Serum Total Protein (6.3-8.2) g/dL Albumin (3.5-5.0) g/dL - Progress Progress Note: 11/11/22 19:27 Nursing note and vital signs reviewed No food or housing insecurities noted Additional history per daughter All lab results reviewed and shared w pt/daughter Ct result reviewed and shared w pt/daughter BP decreased during entire stay wo need for treatment Pt advised to f/u w PCP Counseled pt/family regarding: lab results, diagnosis, need for follow-up, rad results - Departure Departure Disposition: Home Clinical Impression: Hypertension Condition: Stable Critical Care Time: No Referrals: KATHERINE BREWER [Primary Care Provider] - Follow up/PCP as directed Instructions: Malignant Hypertension (DC) Additional Instructions: Follow up with your family MD Continue current meds Return to ER as needed
[2022-11-11 18:20] LABS: Absolute Neutrophil Ct (ANC) 7.56 x10^3/uL (1.4-6.9); BASOPHIL % 0.9 % (0.0-0.4); Eosinophil % 1.6 % (0.00-5.0); Eosinophil (Absolute #) 0.17 x10^3/uL (0-0.5); Hematocrit 43.2 % (35-47); Hemoglobin 13.4 g/dL (12.0-16.0); IMMATURE GRAN # 0.05 x10^3u/L (0.00-0.03); IMMATURE GRAN % 0.5 % (0.00-0.4); Lymphocyte (Absolute #) 2.09 x10^3/uL (1.0-4.6); Lymphocytes % 19.5 % (24.0-44.0); Mean Corpuscular Hemoglobin 26.4 pg (26-32); Mean Platelet Volume 9.1 fL (7.5-11.0); Monocyte (Absolute #) 0.74 x10^3/uL (0.0-1.3); Monocytes % 6.9 % (0.0-12.0); Neutrophil % 70.6 % (36.0-66.0); Platelet Count 394 x10^3/uL (150-450); Red Blood Count 5.08 x10^6/uL (4.1-5.4); Red Cell Distribution Width 14.6 % (11.5-14.0); White Blood Count 10.7 x10^3/uL (4.0-10.5)
[2022-11-11 18:37] LABS: ALBUMIN 4.1 g/dL (3.5-5.0); ANION GAP 11.2 MEQ/L (5-15); BILIRUBIN,TOTAL 0.4 mg/dL (0.2-1.3); Calcium 9.8 mg/dL (8.4-10.2); Creatinine 1 1.38 mg/dL (0.52-1.04); Potassium 4.5 mmol/L (3.5-5.1); Total Protein 7.6 g/dL (6.3-8.2)
[2022-11-11 18:38] LABS: PROTIME 10.9 SECONDS (9.4-12.5); PTT 25.3 SECONDS (25.1-36.5)
[2022-11-11 19:09] VITALS: BP 142/82; PULSE 72
[2022-11-11 19:30] VITALS: O2SAT 95
--- NOTE | 2022-11-12 08:49 | XRAY ---
Indication: Headache. High blood pressure. Multiple contiguous axial images obtained through the head without contrast. Comparison: None Age-appropriate global atrophy. Tiny remote lacunar infarct basal ganglia bilaterally. No acute intracranial hemorrhage, abnormal extra-axial fluid collection, or mass effect. Fourth ventricle is midline without hydrocephalus. Cochran-white matter differentiation preserved. Bony calvarium intact. Visualized paranasal sinuses and mastoid air cells are clear. Impression: Tiny bilateral basal ganglia remote lacunar infarcts. No acute intracranial abnormalities.
== END 2022-11-11 19:13 | disposition home or self-care (01) ==
LOC: ED 16:53
DX: I11.0 Hypertensive heart disease with heart failure (principal); I50.9 Heart failure, unspecified; R51.9 Headache, unspecified; Z79.899 Other long term (current) drug therapy
CPT/HCPCS: 36415; 70450; 80053; 84484; 85025; 85610; 85730; 93005; 99283

== ENCOUNTER 2023-07-23 13:18 | Emergency (ER) | payer MEDICARE ==
[2023-07-23] MEDS ORDERED: Sodium Chloride 0.9% 1000 ML 1,000 ML ONE (14:03)
[2023-07-23] MEDS: Sodium Chloride 0.9% 1000 ML 1,000 ML IV SCH (14:07)
[2023-07-23 14:11] LABS: Appearance Clear (Clear); Bacteria None Seen /HPF (None Seen); Bilirubin Negative (Negative); Blood Negative (Negative); Epithelial Cells None Seen /HPF (None Seen); Glucose, Urine Negative (Negative); Hyaline Casts NONE SEEN /LPF (0-2); Ketones Negative (Negative); Leukocyte Esterase Trace (Negative); Nitrite Negative (Negative); Ph 5.5 (4.6-8.0); Protein,Urine Dip Negative (Negative); RBC 0-2 /HPF (0-5); Specific Gravity <=1.005 (1.005-1.030); Urobilinogen 0.2 mg/dL (0.2); WBC 0-2 /HPF (0-5)
[2023-07-23 14:18] LABS: Absolute Neutrophil Ct (ANC) 3.56 x10^3/uL (1.4-6.9); BASOPHIL % 1.1 % (0.0-0.4); Basophil (Absolute #) 0.07 x10^3/uL (0-0.4); Eosinophil % 6.5 % (0.00-5.0); Eosinophil (Absolute #) 0.42 x10^3/uL (0-0.5); Hematocrit 30.3 % (35-47); Hemoglobin 9.1 g/dL (12.0-16.0); IMMATURE GRAN # 0.01 x10^3u/L (0.00-0.03); IMMATURE GRAN % 0.2 % (0.00-0.4); Lymphocyte (Absolute #) 1.71 x10^3/uL (1.0-4.6); Lymphocytes % 26.4 % (24.0-44.0); Mean Cell Volume 76.9 fL (78-100); Mean Corpuscular Hemoglobin 23.1 pg (26-32); Monocyte (Absolute #) 0.71 x10^3/uL (0.0-1.3); Neutrophil % 54.8 % (36.0-66.0); Platelet Count 340 x10^3/uL (150-450); Red Blood Count 3.94 x10^6/uL (4.1-5.4); Red Cell Distribution Width 14.7 % (11.5-14.0); White Blood Count 6.5 x10^3/uL (4.0-10.5)
[2023-07-23 14:29] LABS: ADD URINE CULTURE? NO (NO)
[2023-07-23 14:36] LABS: ALBUMIN 3.5 g/dL (3.5-5.0); ANION GAP 8.7 MEQ/L (5-15); BILIRUBIN,TOTAL 0.4 mg/dL (0.2-1.3); Calcium 9.4 mg/dL (8.4-10.2); Creatinine 1 1.43 mg/dL (0.52-1.04); EST GLOMERULAR FILTRATION RATE 36.9 ML/MIN; MAGNESIUM 1.7 mg/dL (1.6-2.3); Potassium 3.7 mmol/L (3.5-5.1); Total Protein 7.2 g/dL (6.3-8.2)
[2023-07-23 16:11] VITALS: BP 164/66; PULSE 59; RESP 18; O2SAT 94
--- NOTE | 2023-07-23 16:22 | XRAY ---
CLINICAL HISTORY: back and right hip pain, AAA COMPARISON: None. TECHNIQUE: Multiple axial CT images were obtained through the abdomen and pelvis with coronal and sagittal reformat images without IV contrast material. Images were reviewed in parenchymal and bone window settings. CTDI: 31.44 mGy, DLP: 1484.09 mGy.cm. One of the following dose reduction techniques were utilized for this exam: Automated exposure control, adjustment of the mA and/or kV according to patient size, use of iterative reconstruction. FINDINGS: (Parenchymal organ evaluation is suboptimal within the limitation of non-contrast study): Included Thorax: The visualized portions of the lungs are normal in appearance. The visualized portion of the heart is normal in size without pericardial effusion. Abdominal Vasculature: The abdominal aorta and iliac arteries demonstrate calcified plaques. There is aneurysmatic dilatation of the infrarenal abdominal aorta, measuring 58 mm in diameter, extends for 90 mm in length and ends at the bifurcation level. The Liver: The liver is of normal in size, contour and attenuation characteristics without focal parenchymal lesions and there is no evidence of parenchymal infiltration. No intrahepatic ductal dilatation is seen. The Gallbladder and Biliary Tree: The gallbladder is removed. The common bile duct is normal in appearance. The Spleen and Pancreas: The pancreas is normal contour and attenuation characteristics without focal parenchymal lesions. The spleen is normal contour and attenuation characteristics. without focal parenchymal lesions. The Adrenal glands and Kidneys: The adrenals are normal in size and no mass lesion is detected. Bilateral kidneys are normal in size, shape, and configuration. There is no evidence of renal mass. No hydronephrosis, rosalie-nephric stranding or radio-opaque calculi are visualized. The ureters are normal in course and caliber, without any filling defects. There is 4 cm cortical cyst in the left kidney with focal tiny calcification on the wall. Pelvis: The pelvis evaluation is suboptimal due to artifacts from right hip prosthesis. The urinary bladder is unremarkable. The uterus is removed No adnexal mass detected. Gastrointestinal System (GIS): Esophagogastric junction and stomach are unremarkable. The colon and small bowel loops are normal in appearance and without wall thickening or inflammatory change. No sign of appendicitis. No intraperitoneal free air and fluid is visualized. No pathologic lymphadenopathy is seen. Others: The lumbar spine and discs show degenerative changes. The other included bones and soft tissues are unremarkable. The right hip joint prosthesis noted. No fracture noted. IMPRESSION: Aneurysm of the abdominal aorta. No acute abdominal pathology. [facility] ER was called at [phone] at 3:15 PM DICE MANAGER, 07/23/[address] Ramesh was informed about medical findings. Electronically Signed by: Yohana Calvo MD. (07/23/2023 16:18:02 EDT)
--- NOTE | 2023-07-23 16:44 | ERPHSYRPT ---
- History of Present Illness Time Seen by Provider: 07/23/23 13:24 Historian: patient, family Exam Limitations: no limitations Patient Subjective Stated Complaint: C/O diarrhea X 1 week with some left abdominal pain that started today. Triage Nursing Assessment: Patient brought back to ER in a W/C. She is alert and oriented. Patient able to transfer from chair to bed with stand by assistance. Skin tone normal. Some SOB present with exertion; patient states this is not new. Some edema present to BLE. Physician History: 82-year-old female morbidly obese with history of atrial fibrillation on Eliquis, congestive heart failure, chronic knee and back pain, hip and knee replacements presented in the ER with 1 week history of off-and-on loose stool 1-2 episodes every day and today started to have some dull aching left flank/low back pain.. Also reports increasing pain right hip which was replaced almost 4 years ago with radiation to right lower extremity. Patient has recently had MRI of her back done which was negative for fracture or subluxation but did show abdominal aortic aneurysm as an incidental finding and is scheduled to have CTA runoff on this August 07. Patient denies any dark stool or blood in the stool. Denies any epigastric pain. Does take PPIs. Denies any chest pain or palpitations. Does have history of dyspnea on exertion which is not any worse than usual. No fever or chills reported. Denies any urinary complaints. Patient reports 2-3/10 intensity dull aching pain in the left lower quadrant and right hip. No numbness or weakness of lower extremities. No loss of bowel or bladder control. Allergies/Adverse Reactions: morphine Allergy (Intermediate, Verified 07/23/23 13:29) Vomiting Home Medications: Fenofibrate Nanocrystallized [Fenofibrate] 145 mg PO DAILY 06/07/16 [History] Furosemide 40 mg [Lasix 40 MG] 20 mg PO BID 02/27/22 [History] Atorvastatin Calcium 10 mg PO HS 07/01/22 [History] Omeprazole 20 mg PO HS 07/01/22 [History] Ropinirole HCl 3 mg PO HS 07/01/22 [History] Valsartan 160 mg PO BID 07/01/22 [History] Vibegron [Gemtesa] 75 mg PO DAILY 07/01/22 [History] Hx Tetanus, Diphtheria Vaccination/Date Given: Yes Hx Influenza Vaccination/Date Given: Yes Hx Pneumococcal Vaccination/Date Given: Yes Immunizations Up to Date: Yes Travel Risk - International Travel Have you traveled outside of the country in past 3 weeks: No - Emerging Infectious Disease Are you exhibiting symptoms associated with any current EIDs: Yes Symptoms: Abdominal Pain, Diarrhea - Review of Systems Constitutional: No Symptoms Ears, Nose, & Throat: No Symptoms Respiratory: Dyspnea on Exertion ([place]) Cardiac: Edema, No Chest Pain Abdominal/Gastrointestinal: Abdominal Pain, Diarrhea Genitourinary Symptoms: No Symptoms Musculoskeletal: Back Pain, Joint Pain Skin: No Symptoms Neurological: No Symptoms Endocrine: No Symptoms Immunological/Allergic: No Symptoms - Past Medical History Pertinent Past Medical History: Yes Neurological History: No Pertinent History ENT History: Cataracts Cardiac History: Congestive Heart Failure, High Cholesterol, Hypertension Respiratory History: CHF, Sleep Apnea, Other Endocrine Medical History: Adrenal Insufficiency Musculoskeletal History: Osteoarthritis GI Medical History: Colitis, GERD, Gallbladder Disease History: Renal Disease Psycho-Social History: No Pertinent History Female Reproductive Disorders: No Pertinent History Other Medical History: R TKA 2006, SOB, AAA, Stage III CKD, Water Main Inspector: Dr. Shoemaker. Clinical Engineer: Dr. Gary Mccallum - Past Surgical History Past Surgical History: Yes Cardiac: Cardiac Catheterization Gastrointestinal: Cholecystectomy Musculoskeletal: Joint Replacement Female Surgical History: Hysterectomy Other Surgical History: R and L TKA, RTH, fecal transplant - Social History Smoking Status: Former smoker Exposure to second hand smoke: No Drug Use: none Patient Lives Alone: Yes - Social Determinants of Health Will the patient participate in the screening: Declined to provide - Nursing Vital Signs Nursing Vital Signs: Initial Vital Signs Pulse Rate 69 07/23/23 13:29 Respiratory Rate 18 07/23/23 13:29 Blood Pressure 176/82 07/23/23 13:29 O2 Sat by Pulse Oximetry 93 L 07/23/23 13:29 Pain Scale Pain Intensity 4 - Physical Exam General Appearance: no apparent distress, alert Eye Exam: eyes nml inspection Ears, Nose, Throat Exam: normal ENT inspection, pharynx normal Neck Exam: normal inspection, supple, full range of motion Respiratory Exam: normal breath sounds, lungs clear Cardiovascular Exam: regular rate/rhythm, normal heart sounds Gastrointestinal/Abdomen Exam: soft, normal bowel sounds, tenderness (Minimal tenderness left lower quadrant.) Back Exam: normal inspection, No CVA tenderness Extremity Exam: normal inspection, normal range of motion, pelvis stable, other (Mild tenderness right hip area.) Neurologic Exam: alert, oriented x 3, cooperative, canvas goods maker II-XII nml as tested Skin Exam: normal color SpO2 Interpretation: normal SpO2: 94 O2 Delivery: Room Air Ordered Tests: Active Orders 24 hr Category Date Time Status IV Insertion STAT Care 07/23/23 13:57 Active NPO (ED) STAT Care 07/23/23 13:57 Active ABDOMEN AND PELVIS W/0 CONTRAS [CT] Stat Exams 07/23/23 13:57 Completed CBC W DIFF Stat Lab 07/23/23 14:13 Completed CMP Stat Lab 07/23/23 14:13 Completed LIPASE Stat Lab 07/23/23 14:13 Completed Lactic Acid Stat Lab 07/23/23 14:15 Completed MAGNESIUM Stat Lab 07/23/23 14:13 Completed UA W/RFX UR CULTURE Stat Lab 07/23/23 13:59 Completed Medication Summary Generic Name Dose Route Start Last Admin Trade Name Freq PRN Reason Stop Dose Admin Sodium Chloride 1,000 mls @ 125 mls/hr 07/23/23 14:00 07/23/23 14:07 Sodium Chloride 0.9% 1000 Ml IV 08/22/23 13:59 125 mls/hr .Q8H DIDIER Administration Lab/Rad Data: Laboratory Result Diagrams 07/23/23 14:13 07/23/23 14:13 Laboratory Results 07/23/23 07/23/23 07/23/23 Range/Units 14:15 14:13 14:13 WBC 6.5 (4.0-10.5) x10^3/uL RBC 3.94 L (4.1-5.4) x10^6/uL Hgb 9.1 L (12.0-16.0) g/dL Hct 30.3 L (35-47) % MCV 76.9 L (78-100) fL MCH 23.1 L (26-32) pg MCHC 30.0 L (32-36) g/dL RDW 14.7 H (11.5-14.0) % Plt Count 340 (150-450) x10^3/uL MPV 9.0 (7.5-11.0) fL Gran % 54.8 (36.0-66.0) % Immature Gran % (Auto) 0.2 (0.00-0.4) % Nucleat RBC Rel Count 0.0 (0.00-0.1) % Eos # (Auto) 0.42 (0-0.5) x10^3/uL Immature Gran # (Auto) 0.01 (0.00-0.03) x10^3u/L Absolute Lymphs (auto) 1.71 (1.0-4.6) x10^3/uL Absolute Monos (auto) 0.71 (0.0-1.3) x10^3/uL Absolute Nucleated RBC 0.00 (0.00-0.01) x10^3u/L Lymphocytes % 26.4 (24.0-44.0) % Monocytes % 11.0 (0.0-12.0) % Eosinophils % 6.5 H (0.00-5.0) % Basophils % 1.1 (0.0-0.4) % Absolute Granulocytes 3.56 (1.4-6.9) x10^3/uL Basophils # 0.07 (0-0.4) x10^3/uL Sodium 136 (135-145) mmol/L Potassium 3.7 (3.5-5.1) mmol/L Chloride 103 (98-107) mmol/L Carbon Dioxide 28 (22-30) mmol/L Anion Gap 8.7 (5-15) MEQ/L BUN 26 H (7-17) mg/dL Creatinine 1.43 H (0.52-1.04) mg/dL Estimated GFR 36.9 ML/MIN Glucose 125 H (74-106) mg/dL Lactic Acid 1.1 (0.4-2.0) Calcium 9.4 (8.4-10.2) mg/dL Magnesium 1.7 (1.6-2.3) mg/dL Total Bilirubin 0.40 (0.2-1.3) mg/dL AST 45 H (14-36) U/L ALT 30 (0-35) U/L Alkaline Phosphatase 68 (38-126) U/L Serum Total Protein 7.2 (6.3-8.2) g/dL Albumin 3.5 (3.5-5.0) g/dL Lipase 66 (23-300) U/L Urine Color (Yellow) Urine Appearance (Clear) Urine pH (4.6-8.0) Ur Specific [place] (1.005-1.030) Urine Protein (Negative) Urine Glucose (UA) (Negative) mg/dL Urine Ketones (Negative) Urine Blood (Negative) Urine Nitrite (Negative) Urine Bilirubin (Negative) Urine Urobilinogen (0.2) mg/dL Ur Leukocyte Esterase (Negative) U Hyaline Cast (Auto) (0-2) /LPF Urine Microscopic RBC (0-5) /HPF Urine Microscopic WBC (0-5) /HPF Ur Epithelial Cells (None Seen) /HPF Urine Bacteria (None Seen) /HPF Urine Culture Reflexed (NO) 07/23/23 Range/Units 13:59 WBC (4.0-10.5) x10^3/uL RBC (4.1-5.4) x10^6/uL Hgb (12.0-16.0) g/dL Hct (35-47) % MCV (78-100) fL MCH (26-32) pg MCHC (32-36) g/dL RDW (11.5-14.0) % Plt Count (150-450) x10^3/uL MPV (7.5-11.0) fL Gran % (36.0-66.0) % Immature Gran % (Auto) (0.00-0.4) % Nucleat RBC Rel Count (0.00-0.1) % Eos # (Auto) (0-0.5) x10^3/uL Immature Gran # (Auto) (0.00-0.03) x10^3u/L Absolute Lymphs (auto) (1.0-4.6) x10^3/uL Absolute Monos (auto) (0.0-1.3) x10^3/uL Absolute Nucleated RBC (0.00-0.01) x10^3u/L Lymphocytes % (24.0-44.0) % Monocytes % (0.0-12.0) % Eosinophils % (0.00-5.0) % Basophils % (0.0-0.4) % Absolute Granulocytes (1.4-6.9) x10^3/uL Basophils # (0-0.4) x10^3/uL Sodium (135-145) mmol/L Potassium (3.5-5.1) mmol/L Chloride (98-107) mmol/L Carbon Dioxide (22-30) mmol/L Anion Gap (5-15) MEQ/L BUN (7-17) mg/dL Creatinine (0.52-1.04) mg/dL Estimated GFR ML/MIN Glucose (74-106) mg/dL Lactic Acid (0.4-2.0) Calcium (8.4-10.2) mg/dL Magnesium (1.6-2.3) mg/dL Total Bilirubin (0.2-1.3) mg/dL AST (14-36) U/L ALT (0-35) U/L Alkaline Phosphatase (38-126) U/L Serum Total Protein (6.3-8.2) g/dL Albumin (3.5-5.0) g/dL Lipase (23-300) U/L Urine Color Yellow (Yellow) Urine Appearance Clear (Clear) Urine pH 5.5 (4.6-8.0) Ur Specific [place] <=1.005 (1.005-1.030) Urine Protein Negative (Negative) Urine Glucose (UA) Negative (Negative) mg/dL Urine Ketones Negative (Negative) Urine Blood Negative (Negative) Urine Nitrite Negative (Negative) Urine Bilirubin Negative (Negative) Urine Urobilinogen 0.2 (0.2) mg/dL Ur Leukocyte Esterase Trace A (Negative) U Hyaline Cast (Auto) NONE SEEN (0-2) /LPF Urine Microscopic RBC 0-2 (0-5) /HPF Urine Microscopic WBC 0-2 (0-5) /HPF Ur Epithelial Cells None Seen (None Seen) /HPF Urine Bacteria None Seen (None Seen) /HPF Urine Culture Reflexed NO (NO) - Progress Progress: improved, re-examined Progress Note: 07/23/23 16:39 82-year-old with multiple medical problems is evaluated in the ER for diarrhea 1 week, right hip pain. Has history of chronic back pain. Recently came to know about abdominal aortic aneurysm which was an incidental finding on MRI and is scheduled for CTA runoff later this month. Patient has no definite or tenderness in the abdomen. Lungs fairly clear to auscultation. Intact range of motion of lower extremities. Workup showed normal white count, hemoglobin of 9.1 which is a drop from 13.5 almost a year ago. No other labs available to wayne hankins in our system. I have discussed with the patient and she has MyChart pulled out from [facility] which showed patient hemoglobin is declining gradually from 13-12 and then 11 and last check was 10.2 and today is 9.1. I believe patient needs further evaluation with stool occult and possible colonoscopy to find out the source of anemia. I have obtained CT abdomen pelvis without contrast because patient's renal functions and not very good with a GFR of 36 send creatinine of 1.45 which is around baseline. CT abdomen pelvis without contrast showed 5.8 cm infrarenal abdominal aortic aneurysm extending to bifurcation. No other acute intra-abdominal pelvic findings. I believe erica ent needs further evaluation with cardiology/vascular surgery. Patient primary care is aware of it and is in process of referring her to vascular for further evaluation. Patient has no UTI. Recommended taking Tylenol. Also discussed with patient and family about discussion with cardiology about Eliquis with her progressively worsening anemia. At this point I do not think patient needs any further workup in the emergency room and is being discharged with outpatient follow-up. Discussed signs symptoms of worsening needing return to ER which patient/family seem understanding. Stable for discharge. Counseled pt/family regarding: lab results, diagnosis, need for follow-up, rad results Medical Desision Making - Independent Historian Additional History obtained from: Child - Diagnostic Testing Diagnostic test were ordered, analyzed, and reviewed by me: Yes Radiological Interpretation: Reviewed by me, Teleradiologist Report - Departure Departure Disposition: Home Clinical Impression: Diarrhea, Left lower quadrant abdominal pain, AAA (abdominal aortic aneurysm) without rupture, Anemia Condition: Stable Critical Care Time: No Referrals: FRANCISCO JAVIER CANALES NP [Primary Care Provider] - Follow up/PCP as directed Instructions: Abdominal aortic aneurysm, Diarrhea and Traveler's Diarrhea, Adult (DC) Additional Instructions: Follow-up with your primary care and senior editor for reevaluation and may need further workup for anemia/low hemoglobin count with possible colonoscopy, aortic aneurysm repair options/monitoring. Return to ER for intractable abdominal pain/back pain/numbness tingling weakness of lower extremities/loss of bowel or bladder control. Also for dark stool, coffee-ground vomiting or blood in the stool/vomitus etc.
== END 2023-07-23 17:00 | disposition home or self-care (01) ==
LOC: ED 13:18
DX: R19.7 Diarrhea, unspecified (principal); R10.32 Left lower quadrant pain; I71.40 Abdominal aortic aneurysm, without rupture, unspecified; D64.9 Anemia, unspecified; M25.551 Pain in right hip; E78.5 Hyperlipidemia, unspecified; I13.0 Hypertensive heart and chronic kidney disease with heart failure and stage 1 through stage 4 chronic kidney disease, or unspecified chronic kidney disease; I50.9 Heart failure, unspecified; N18.30 Chronic kidney disease, stage 3 unspecified; Z79.899 Other long term (current) drug therapy
CPT/HCPCS: 36000; 36415; 74176; 80053; 81001; 83605; 83690; 83735; 85025; 99284

== ENCOUNTER 2023-08-02 08:06 | Emergency (ER) | payer MEDICARE ==
[2023-08-02 08:36] VITALS: TEMP 97.3
--- NOTE | 2023-08-02 08:44 | ERPHSYRPT ---
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 The pain started around the first of June and has been progressively worsening. The pain is primarily located deep in the buttock area, but also radiates to the groin. The pain intensifies at night, making it unbearable for the patient. She also reports feeling weakness in her leg, with episodes of stiffness in her calf that hinder her mobility. The patient denies any recent falls or injuries. She has been trying to manage the pain on her own but decided to seek medical attention due to the severity and persistence of the pain. Patient has a AAA 57mm x 90mm, she sees Dr. Casey Mccallum and has an appointment for this on 08/17. Method of Injury: unknown Occurred: other (1 month) Quality: constant, cramping, stabbing Severity of Pain-Max: severe Severity of Pain-Current: severe Lower Extremities Pain: hip: right, leg: right, thigh: right Modifying Factors: Worsens With: movement Associated Symptoms: none Allergies/Adverse Reactions: morphine Allergy (Intermediate, Verified 08/02/23 08:36) Vomiting Home Medications: Fenofibrate Nanocrystallized [Fenofibrate] 145 mg PO DAILY 06/07/16 [History] Furosemide 40 mg [Lasix 40 MG] 20 mg PO BID 02/27/22 [History] Atorvastatin Calcium 10 mg PO HS 07/01/22 [History] Omeprazole 20 mg PO HS 07/01/22 [History] Ropinirole HCl 4 mg PO HS 07/01/22 [History] Valsartan 160 mg PO BID 07/01/22 [History] Vibegron [Gemtesa] 75 mg PO DAILY 07/01/22 [History] Tizanidine HCl 4 mg PO Q6H 08/02/23 [History] Hx Tetanus, Diphtheria Vaccination/Date Given: Yes Hx Influenza Vaccination/Date Given: Yes Hx Pneumococcal Vaccination/Date Given: Yes Travel Risk - International Travel Have you traveled outside of the country in past 3 weeks: No - Emerging Infectious Disease Are you exhibiting symptoms associated with any current EIDs: Yes Symptoms: Abdominal Pain, Diarrhea - Review of Systems All Other Systems: Reviewed and Negative - Past Medical History Pertinent Past Medical History: Yes Neurological History: No Pertinent History ENT History: Cataracts Cardiac History: Congestive Heart Failure, High Cholesterol, Hypertension Respiratory History: CHF, Sleep Apnea, Other Endocrine Medical History: Adrenal Insufficiency Musculoskeletal History: Osteoarthritis GI Medical History: Colitis, GERD, Gallbladder Disease History: Renal Disease Psycho-Social History: No Pertinent History Female Reproductive Disorders: No Pertinent History Other Medical History: R TKA 2006, SOB, AAA, Stage III CKD, Damper Maker: Dr. Shoemaker. Taker Down: Dr. Gary Mccallum - Past Surgical History Past Surgical History: Yes Cardiac: Cardiac Catheterization Gastrointestinal: Cholecystectomy Musculoskeletal: Joint Replacement Female Surgical History: Hysterectomy Other Surgical History: R and L TKA, RTH, fecal transplant - Social History Smoking Status: Former smoker Exposure to second hand smoke: No Drug Use: none Patient Lives Alone: Yes - Social Determinants of Health Will the patient participate in the screening: Declined to provide - Nursing Vital Signs Nursing Vital Signs: Initial Vital Signs Temperature 97.3 F 08/02/23 08:13 Pulse Rate 68 08/02/23 08:13 Respiratory Rate 23 08/02/23 08:13 Blood Pressure 155/75 08/02/23 08:13 O2 Sat by Pulse Oximetry 96 08/02/23 08:13 Pain Scale Pain Intensity 8 - Physical Exam General Appearance: no apparent distress Gastrointestinal/Abdominal Exam: non-tender, soft (unable to palpate AAA), No guarding Back Exam: vertebral tenderness, decreased range of motion, muscle spasm, point tenderness Hips Exam: right: limited range of motion, pain, soft tissue tenderness, other (+ stinchfield, palpable clicking with NEW, FADIR with groin pain, no pain wit h abduction/adduction) Legs Exam: right leg: pain, soft tissue tenderness Neuro/Tendon Exam: normal sensation, normal motor functions Mental Status Exam: alert, oriented x 3, cooperative Skin Exam: normal color, warm, dry, No rash SpO2 Interpretation: normal SpO2: 96 O2 Delivery: Room Air - Course Nursing assessment & vital signs reviewed: Yes - CT Exams Right Lower Extremity CT Interpretation: Tele-radiologist Report (No fracture, no signs of loosening of GAGANDEEP hardware.) Ordered Tests: Active Orders 24 hr Category Date Time Status LOWER EXTREMITY WO CONTRAST [CT] Stat Exams 08/02/23 09:06 Completed CBC W DIFF Stat Lab 08/02/23 09:20 Completed CMP Stat Lab 08/02/23 09:30 Completed CULTURE,URINE Stat Lab 08/02/23 09:32 Received Lactic Acid Stat Lab 08/02/23 09:55 Completed MAGNESIUM Stat Lab 08/02/23 09:30 Completed OB-FECAL SCREEN Stat Lab 08/02/23 10:53 Completed UA W/RFX UR CULTURE Stat Lab 08/02/23 09:32 Completed Medication Summary Discontinued Medications Generic Name Dose Route Start Last Admin Trade Name Freq PRN Reason Stop Dose Admin Methocarbamol 500 mg 08/02/23 09:33 08/02/23 10:12 Methocarbamol 500 Mg Tablet PO 08/02/23 09:34 500 mg ONCE ONE Administration Methylprednisolone Acetate 80 mg 08/02/23 09:33 08/02/23 10:12 Methylprednisolone Acetate 80 Mg/Ml Vial IM 08/02/23 09:34 80 mg ONCE ONE Administration Methylprednisolone Acetate Confirm 08/02/23 10:02 Methylprednisolone Acetate 80 Mg/Ml Vial Administered 08/02/23 10:03 Dose 80 mg .ROUTE .STK-MED ONE Lab/Rad Data: Laboratory Result Diagrams 08/02/23 09:20 08/02/23 09:30 Laboratory Results 08/02/23 08/02/23 08/02/23 Range/Units 10:53 09:55 09:32 WBC (3.98-10.04) x10^3/uL RBC (3.93-5.22) x10^6/uL Hgb (11.2-15.7) g/dL Hct (34.1-44.9) % MCV (79.4-94.8) fL MCH (25.6-32.2) pg MCHC (32.2-35.5) g/dL RDW (11.7-14.4) % Plt Count (182-369) x10^3/uL MPV (9.4-12.3) fL Gran % (34.0-71.1) % Immature Gran % (Auto) (0.001-0.429) % Nucleat RBC Rel Count (0.00-0.2) % Eos # (Auto) (0.04-0.36) x10^3/uL Immature Gran # (Auto) (0.001-0.031) x10^3u/L Absolute Lymphs (auto) (1.18-3.74) x10^3/uL Absolute Monos (auto) (0.24-0.86) x10^3/uL Absolute Nucleated RBC (0.00-0.012) x10^3u/L Lymphocytes % (19.3-51.7) % Monocytes % (4.7-12.5) % Eosinophils % (0.7-5.8) % Basophils % (0.1-1.2) % Absolute Granulocytes (1.56-6.13) x10^3/uL Basophils # (0.01-0.08) x10^3/uL Sodium (135-145) mmol/L Potassium (3.5-5.1) mmol/L Chloride (98-107) mmol/L Carbon Dioxide (22-30) mmol/L Anion Gap (5-15) MEQ/L BUN (7-17) mg/dL Creatinine (0.52-1.04) mg/dL Estimated GFR ML/MIN Glucose (74-106) mg/dL Lactic Acid 0.9 (0.4-2.0) Calcium (8.4-10.2) mg/dL Magnesium (1.6-2.3) mg/dL Iron (37-170) ug/dL Total Bilirubin (0.2-1.3) mg/dL AST (14-36) U/L ALT (0-35) U/L Alkaline Phosphatase (38-126) U/L Serum Total Protein (6.3-8.2) g/dL Albumin (3.5-5.0) g/dL Urine Color Yellow (Yellow) Urine Appearance Clear (Clear) Urine pH 5.5 (4.6-8.0) Ur Specific [place] <=1.005 (1.005-1.030) Urine Protein Negative (Negative) Urine Glucose (UA) Negative (Negative) mg/dL Urine Ketones Negative (Negative) Urine Blood Negative (Negative) Urine Nitrite Negative (Negative) Urine Bilirubin Negative (Negative) Urine Urobilinogen 0.2 (0.2) mg/dL Ur Leukocyte Esterase Negative (Negative) U Hyaline Cast (Auto) NONE SEEN (0-2) /LPF Urine Microscopic RBC 0-2 (0-5) /HPF Urine Microscopic WBC 0-2 (0-5) /HPF Ur Epithelial Cells None Seen (None Seen) /HPF Urine Bacteria None Seen (None Seen) /HPF Urine Culture Reflexed NO (NO) Stl Occult Blood (IFOB) POSITIVE A (NEGATIVE) 08/02/23 08/02/23 08/02/23 Range/Units 09:30 09:30 09:20 WBC 6.6 (3.98-10.04) x10^3/uL RBC 4.30 (3.93-5.22) x10^6/uL Hgb 9.8 L (11.2-15.7) g/dL Hct 31.9 L (34.1-44.9) % MCV 74.2 L (79.4-94.8) fL MCH 22.8 L (25.6-32.2) pg MCHC 30.7 L (32.2-35.5) g/dL RDW 15.3 H (11.7-14.4) % Plt Count 397 H (182-369) x10^3/uL MPV 9.2 L (9.4-12.3) fL Gran % 58.0 (34.0-71.1) % Immature Gran % (Auto) 0.3 (0.001-0.429) % Nucleat RBC Rel Count 0.0 (0.00-0.2) % Eos # (Auto) 0.52 H (0.04-0.36) x10^3/uL Immature Gran # (Auto) 0.02 (0.001-0.031) x10^3u/L Absolute Lymphs (auto) 1.38 (1.18-3.74) x10^3/uL Absolute Monos (auto) 0.76 (0.24-0.86) x10^3/uL Absolute Nucleated RBC 0.00 (0.00-0.012) x10^3u/L Lymphocytes % 21.0 (19.3-51.7) % Monocytes % 11.6 (4.7-12.5) % Eosinophils % 7.9 H (0.7-5.8) % Basophils % 1.2 (0.1-1.2) % Absolute Granulocytes 3.82 (1.56-6.13) x10^3/uL Basophils # 0.08 (0.01-0.08) x10^3/uL Sodium 134 L (135-145) mmol/L Potassium 4.1 (3.5-5.1) mmol/L Chloride 101 (98-107) mmol/L Carbon Dioxide 27 (22-30) mmol/L Anion Gap 9.6 (5-15) MEQ/L BUN 25 H (7-17) mg/dL Creatinine 1.41 H (0.52-1.04) mg/dL Estimated GFR 37.5 ML/MIN Glucose 100 (74-106) mg/dL Lactic Acid (0.4-2.0) Calcium 9.8 (8.4-10.2) mg/dL Magnesium 1.8 (1.6-2.3) mg/dL Iron 34 L (37-170) ug/dL Total Bilirubin 0.50 (0.2-1.3) mg/dL AST 64 H (14-36) U/L ALT 38 H (0-35) U/L Alkaline Phosphatase 82 (38-126) U/L Serum Total Protein 7.5 (6.3-8.2) g/dL Albumin 3.6 (3.5-5.0) g/dL Urine Color (Yellow) Urine Appearance (Clear) Urine pH (4.6-8.0) Ur Specific [place] (1.005-1.030) Urine Protein (Negative) Urine Glucose (UA) (Negative) mg/dL Urine Ketones (Negative) Urine Blood (Negative) Urine Nitrite (Negative) Urine Bilirubin (Negative) Urine Urobilinogen (0.2) mg/dL Ur Leukocyte Esterase (Negative) U Hyaline Cast (Auto) (0-2) /LPF Urine Microscopic RBC (0-5) /HPF Urine Microscopic WBC (0-5) /HPF Ur Epithelial Cells (None Seen) /HPF Urine Bacteria (None Seen) /HPF Urine Culture Reflexed (NO) Stl Occult Blood (IFOB) (NEGATIVE) - Progress Progress Note: 08/02/23 09:41 Right Hip Pain: Pain from hip to ankle, worse at night, with weakness and numbness. History of right total hip replacement in 2019. -Order CT imaging of the hip to assess for any abnormalities or loosening of the hip replacement. Abdominal Aortic Aneurysm (AAA): Large AAA identified, likely contributing to leg pain due to reduced blood flow. Patient scheduled for CTA with contrast on 08/08/2023. -Continue with scheduled CTA to assess stability of AAA and potential need for intervention. -Consider transfusion if hemoglobin drops to 8 (was 9 at last check). Recent lumbar spine MRI shows moderate to severe stenosis on right and moderate on left -Patient given 80mg IM Depo -Robaxin 500mg PO given 08/02/23 10:49 Patient found to have elevated eosinophils on laboratory evaluation with reported diarrhea for the past several weeks. Patient has a history of ulcerative colitis for which she was on Remicade and in remission for the past 6 years. Denies any blood in her stool or abdominal pain today. She has no fevers and vital signs are within normal limits at this time. Patient encouraged to schedule follow-up with her colored liquid plastic applier [facility]. I will send her home on a prednisone taper to help with her colitis as well as helping with her lumbar radiculopathy pain. CT scan of the right hip showed no evidence of loosening or malfunction of previous total hip arthroplasty hardware. Counseled pt/family regarding: lab results, diagnosis, need for follow-up, rad results Medical Desision Making - Diagnostic Testing Diagnostic test were ordered, analyzed, and reviewed by me: Yes Radiological Interpretation: Interpreted by me, Reviewed by me, Teleradiologist Report - Risk of complications The pt has a mod risk of morbidity or mortality based on: Need for prescription drug management - Departure Departure Disposition: Home Clinical Impression: Iron deficiency anemia, Transaminitis, Diarrhea, Elevated platelet count, CKD (chronic kidney disease), Eosinophilia, Eosinophilic gastroenteritis and colitis, Ulcerative colitis, Right hip pain, Right leg pain, Lumbar stenosis, AAA (abdominal aortic aneurysm) without rupture Condition: Good Critical Care Time: No Referrals: PARKER,FRANCISCO JAVIER ROSEMARIE, PARTS DEPARTMENT MANAGER [Primary Care Provider] - Follow up/PCP as directed Prescriptions: predniSONE [Prednisone] 10 mg PO DAILY 15 Days #45 tablet
[2023-08-02 09:33] LABS: Absolute Neutrophil Ct (ANC) 3.82 x10^3/uL (1.56-6.13); BASOPHIL % 1.2 % (0.1-1.2); Basophil (Absolute #) 0.08 x10^3/uL (0.01-0.08); Eosinophil % 7.9 % (0.7-5.8); Eosinophil (Absolute #) 0.52 x10^3/uL (0.04-0.36); Hematocrit 31.9 % (34.1-44.9); Hemoglobin 9.8 g/dL (11.2-15.7); IMMATURE GRAN # 0.02 x10^3u/L (0.001-0.031); IMMATURE GRAN % 0.3 % (0.001-0.429); Lymphocyte (Absolute #) 1.38 x10^3/uL (1.18-3.74); Mean Cell Volume 74.2 fL (79.4-94.8); Mean Corpuscular Hemoglobin 22.8 pg (25.6-32.2); Mean Corpuscular Hgb Concent. 30.7 g/dL (32.2-35.5); Mean Platelet Volume 9.2 fL (9.4-12.3); Monocyte (Absolute #) 0.76 x10^3/uL (0.24-0.86); Monocytes % 11.6 % (4.7-12.5); Platelet Count 397 x10^3/uL (182-369); Red Cell Distribution Width 15.3 % (11.7-14.4); White Blood Count 6.6 x10^3/uL (3.98-10.04)
[2023-08-02 09:42] LABS: Appearance Clear (Clear); Bacteria None Seen /HPF (None Seen); Bilirubin Negative (Negative); Blood Negative (Negative); Epithelial Cells None Seen /HPF (None Seen); Glucose, Urine Negative (Negative); Hyaline Casts NONE SEEN /LPF (0-2); Ketones Negative (Negative); Leukocyte Esterase Negative (Negative); Nitrite Negative (Negative); Ph 5.5 (4.6-8.0); Protein,Urine Dip Negative (Negative); RBC 0-2 /HPF (0-5); Specific Gravity <=1.005 (1.005-1.030); Urobilinogen 0.2 mg/dL (0.2); WBC 0-2 /HPF (0-5)
[2023-08-02 09:48] LABS: ALBUMIN 3.6 g/dL (3.5-5.0); ANION GAP 9.6 MEQ/L (5-15); BILIRUBIN,TOTAL 0.5 mg/dL (0.2-1.3); Calcium 9.8 mg/dL (8.4-10.2); Creatinine 1 1.41 mg/dL (0.52-1.04); EST GLOMERULAR FILTRATION RATE 37.5 ML/MIN; MAGNESIUM 1.8 mg/dL (1.6-2.3); Potassium 4.1 mmol/L (3.5-5.1); Total Protein 7.5 g/dL (6.3-8.2)
[2023-08-02 09:52] LABS: ADD URINE CULTURE? NO (NO)
[2023-08-02] MEDS ORDERED: Depo-Medrol 80 MG/ML ONE (10:02)
[2023-08-02] MEDS: Robaxin PO ONE (10:12)
[2023-08-02] MEDS: Depo-Medrol 80 MG/ML IM ONE (10:12)
[2023-08-02 10:20] VITALS: BP 163/56
--- NOTE | 2023-08-02 10:43 | XRAY ---
Indication: Pain. Multiple contiguous axial images obtained through the right hip. Sagittal and coronal reformatted images obtained. Comparison: July 23, 2023 Again right total hip arthroplasty with beam artifact from prosthesis. Grossly intact bipolar prosthesis. Again chronic findings including osteopenia, lumbosacral junction degenerative disc disease, right SI joint degenerative changes, scattered arteriosclerotic calcifications, and right gluteal calcified injection granulomas. No new bony, articular, or soft tissue abnormalities on this noncontrast exam. Impression: No change compared to ER CT exam 10 days ago. Again beam artifact from grossly intact right total hip arthroplasty, osteopenia, degenerative changes, and arteriosclerotic disease. No new/acute findings on this noncontrast exam.
[2023-08-02 10:53] LABS: IFOB TEST RESULTS POSITIVE (NEGATIVE)
[2023-08-02 11:19] VITALS: PULSE 62; RESP 22; O2SAT 94
== END 2023-08-02 11:30 | disposition home or self-care (01) ==
LOC: ED 08:06
DX: D50.9 Iron deficiency anemia, unspecified (principal); R74.01 Elevation of levels of liver transaminase levels; R19.7 Diarrhea, unspecified; D75.839 Thrombocytosis, unspecified; I13.0 Hypertensive heart and chronic kidney disease with heart failure and stage 1 through stage 4 chronic kidney disease, or unspecified chronic kidney disease; I50.9 Heart failure, unspecified; N18.30 Chronic kidney disease, stage 3 unspecified; D72.10 Eosinophilia, unspecified; K52.81 Eosinophilic gastritis or gastroenteritis; K51.90 Ulcerative colitis, unspecified, without complications; M25.551 Pain in right hip; M79.604 Pain in right leg; M48.061 Spinal stenosis, lumbar region without neurogenic claudication; I71.40 Abdominal aortic aneurysm, without rupture, unspecified; E78.5 Hyperlipidemia, unspecified; Z79.52 Long term (current) use of systemic steroids; Z79.899 Other long term (current) drug therapy
CPT/HCPCS: 36415; 73700; 80053; 81001; 83540; 83605; 83735; 85025; 87086; 96372; 99284; G0328; 82274; J1010; A9270-GY